=== PATIENT | female | born 1945 | race Caucasian/White ===

== ENCOUNTER 2016-12-30 21:27 | Emergency (ER) | payer MEDICARE ==
[~2016-12-30] VITALS: Ht 160 cm; Wt 81.0 kg
[~2016-12-30 21:27] MED LIST: BENT20TA PO; CIPR500T4 PO; HYDR-3533 PO; HYZA50TA2 PO; POTA10IN2 PO; SIMV20 PO; VENL-39 PO; ZOFR4TAB3 SL
[2016-12-30 21:32] VITALS: BP 180/88; PULSE 81; RESP 18; TEMP 98.3; O2SAT 99
[2016-12-30 22:19] VITALS: BP 169/71; PULSE 75; RESP 18; TEMP 98.3; O2SAT 98
[2016-12-30] MEDS ORDERED: SODIUM CHLOR 0.9% 1000 ML INJ 1,000 ML IV SCH (22:33)
[2016-12-30 22:35] VITALS: RESP 18; O2SAT 98
[2016-12-30] MEDS ORDERED: SODIUM CHLORIDE 0.9% FLUSH 10 ML FLUSH IV FLUSH PRN (22:45)
[2016-12-30] MEDS ORDERED: MORPHINE SULFATE 8 MG/ML INJ IV PUSH ONE (22:45)
[2016-12-30] MEDS ORDERED: ONDANSETRON HCL 4 MG/2 ML VIAL IVP ONE (22:45)
[2016-12-30 22:51] LABS: AUTOMATED NEUTROPHIL # 5.6 TH/MM3 (1.8-7.7); BASOPHIL % 0.4 % (0.0-2.0); EOSINOPHIL # 0.1 TH/MM3 (0-0.4); EOSINOPHIL % 1.7 % (0.0-4.0); HEMATOCRIT 35.3 % (35.0-46.0); HEMO FLAGS DIFF FINAL; LYMPHOCYTE # 1.5 TH/MM3 (1.0-4.8); MEAN CELL VOLUME 88.7 FL (80.0-100.0); MEAN CORPUSCULAR HGB CONC 33.9 % (32.0-36.0); MONO % 6.3 % (0.0-8.0); NEUT % 71.6 % (16.0-70.0); PLATELET COUNT 279 TH/MM3 (150-450); RED BLOOD COUNT 3.99 MIL/MM3 (4.00-5.30); RED CELL DISTRIBUTION WIDTH 12.4 % (11.6-17.2); WHITE BLOOD COUNT 7.7 TH/MM3 (4.0-11.0)
[2016-12-30 23:01] LABS: CHLORIDE 101 MEQ/L (98-107); SODIUM (NA) 137 MEQ/L (136-145)
[2016-12-30 23:05] LABS: ANION GAP 7 MEQ/L (5-15); BICARBONATE 29.1 MEQ/L (21.0-32.0); BLOOD UREA NITROGEN 23 MG/DL (7-18)
[2016-12-30 23:07] LABS: BLOOD, URINE TRACE (NEG); GLUCOSE,URINE NEG (NEG); KETONE, URINE NEG (NEG); NITRITE,URINE NEG (NEG); PH, URINE 5.5 (5.0-8.5)
[2016-12-30 23:08] LABS: ALT (GPT) 23 U/L (10-53); AST (GOT) 26 U/L (15-37); GLOMERULAR FILTRATION RATE 45 ML/MIN (>89)
[2016-12-30 23:09] LABS: TOTAL BILIRUBIN ADULT 0.5 MG/DL (0.2-1.0)
[2016-12-30 23:10] LABS: POTASSIUM 4.3 MEQ/L (3.5-5.1)
[2016-12-30 23:11] LABS: ALKALINE PHOSPHATASE 136 U/L (45-117)
[2016-12-30 23:13] LABS: BACTERIA, URINE RARE /hpf; COMMENT (UR) CULT NOT INDICATED; CULTURE IF INDICATED CULT NOT INDICATED; RBC, URINE 0-3 /hpf (0-3); URINE COLOR YELLOW (YELLW/STRAW)
[2016-12-30] MEDS ORDERED: IOHEXOL 350 MG/ML 10 ML VIAL (for RAD DIAG) IV ONE (23:54)
--- NOTE | 2016-12-31 00:18 | RADRPT ---
EXAM DATE/TIME: 12/30/2016 23:50 [place] COMPARISON: CT ABDOMEN & PELVIS W CONTRAST, December 31, 2015, 11:27. INDICATIONS : Right lower quadrant pain, nausea and vomiting for one week. IV CONTRAST: 96 cc Omnipaque 350 (iohexol) IV ORAL CONTRAST: No oral contrast ingested. RADIATION DOSE: 13.10 CTDIvol (mGy) MEDICAL HISTORY : Hypertension. SURGICAL HISTORY : Hysterectomy. Appendectomy.Cholecystectomy.Lt ovary ENCOUNTER: Initial ACUITY: 1 week PAIN SCALE: 8/10 LOCATION: Right lower quadrant TECHNIQUE: Volumetric scanning of the abdomen and pelvis was performed. Using automated exposure control and ad justment of the mA and/or kV according to patient size, radiation dose was kept as low as reasonably achievable to obtain optimal diagnostic quality images. DICOM format image data is available electro nically for review and comparison. FINDINGS: LOWER LUNGS: The visualized lower lungs are clear. LIVER: Homogeneous density without lesion. There is no dilation of the biliary tree. Cholecystectomy clips. SPLEEN: Normal size without lesion. PANCREAS: Within normal limits. KIDNEYS: Normal in size and shape. There is no mass, stone or hydronephrosis. ADRENAL GLANDS: Within normal limits. VASCULAR: There is no aortic aneurysm. BOWEL/MESENTERY: The stomach, small bowel, and colon demonstrate no acute abnormality. There is no free intraperitone al air or fluid. Scattered diverticulosis. ABDOMINAL WALL: Small fat-containing umbilical hernia. RETROPERITONEUM: There is no lymphadenopathy. BLADDER: No wall thickening or mass. REPRODUCTIVE: Within normal limits. Small calcification posterior to the uterus. INGUINAL: There is no lymphadenopathy or hernia. MUSCULOSKELETAL: Within normal limits for patient age. CONCLUSION: 1. Diverticulosis without diverticulitis. 2. Status post cholecystectomy. 3. Small fat-containing umbilical hernia. 4. Calcified leiomyoma. Randolph Najera MD on December 31, 2016 at 0:14 Board Certified Radiologist. This report was verified electronically.
--- NOTE | 2016-12-31 00:46 | PD ---
HPI Chief Complaint: GI Complaint Time Seen by Provider: 22:33 Travel History International Travel<30 days: No Contact w/Intl Traveler<30days: No Traveled to known affect area: No History of Present Illness HPI 71 year-old female presents to the emergency department for complaint of lower abdominal pain times one week. Patient was seen by her primary care provider and started on oral antibiotic medication for abdominal cramping and spasm and pain medication. Patient states she does not feel like she is improved. Patient states at time of diagnosis she was not having fever chills diarrhea or or blood or mucous in her stool. Patient does not recall diagnosis of diverticulosis at time of colonoscopy several years ago. Patient denies history of inflammatory bowel disease. Patient denies dietary indiscretion well water ingestion or foreign travel. Patient denies dysuria frequency or urgency. Patient has had no chest pain or shortness of breath. Patient rates her discomfort 8/10 in intensity. Patient is unable to identify exacerbating or alleviating factors. Patient does not note increased pain with activity or movement. PFSH Past Medical History Narrative Medical Hypertension dyslipidemia spinal stenosis lumbar disc disease ovarian cysts cholecystectomy hysterectomy left oophorectomy and bunionectomy; no tobacco use ; nursing notes reviewed Cardiovascular Problems: Yes (HTN) High Cholesterol: Yes Diminished Hearing: No Hypertension: Yes Medical other: Yes (SPINAL STENOSIS, BULGING DISC AT L4 AND L5) Tetanus Vaccination: > 5 Years Influenza Vaccination: Yes ?: Not Menopausal: Yes Ovarian Cysts: Yes Past Surgical History Cholecystectomy: Yes Gynecologic Surgery: Yes (L OVARY REMOVAL) Hysterectomy: Yes Other Surgery: Yes (R GREAT TOE BUNECTOMY) Social History Alcohol Use: No Tobacco Use: No Substance Use: No Allergies-Medications (Allergen,Severity, Reaction): Coded Allergies: SANDRO Inhibitors (Verified Allergy, Severe, COUGH, 12/30/16) Reported Meds & Prescriptions Reported Meds & Active Scripts Active Phenergan (Promethazine HCl) 25 Mg Tablet 25 Mg PO Q6H PRN Lortab 5 mg/325 mg (Hydrocodone/Acetaminophen 5 mg/325 mg) 1 Tab 1 Tab PO Q4H PRN Cipro (Ciprofloxacin HCl) 500 Mg Tab 500 Mg PO BID Bentyl (Dicyclomine HCl) 20 Mg Tab 20 Mg PO QID PRN Zofran ODT (Ondansetron HCl) 4 Mg Tab 4 Mg SL Q6H PRN FOR NAUSEA/VOMITING Reported Simvastatin 20 mg (Simvastatin) 20 Mg Tab 1 Tab PO EVERY OTHER DAY Potassium Chloride 10 Meq Cap 1 Cap PO DAILY Venlafaxine Hcl Er (Venlafaxine HCl) 75 Mg Dede 75 Mg PO DAILY Hyzaar 50-12.5 (Losartan Potassium-Hct 50-12.5) 50 Mg/12.5 Mg Tab 1 Tab PO DAILY Review of Systems Except as stated in HPI: all other systems reviewed are Neg General / Constitutional: No: Fever, Chills HENT: No: Congestion Cardiovascular: No: Chest Pain or Discomfort Respiratory: No: Shortness of Breath Gastrointestinal: Positive: Nausea, Vomiting, Abdominal Pain, No: Diarrhea Genitourinary: No: Decreased Urinary Output, Flank Pain Musculoskeletal: No: Myalgias, Arthralgias Skin: No Rash Neurologic: No: Weakness Psychiatric: Positive: Anxiety Hematologic/Lymphatic: No: Lymph Node Enlargement Physical Exam Narrative GENERAL: Well-developed well-nourished female in no acute distress no respiratory distress SKIN: Warm and dry. HEAD: Normocephalic. EYES: No scleral icterus. No injection or drainage. NECK: Supple, trachea midline. No JVD or lymphadenopathy. CARDIOVASCULAR: Regular rate and rhythm without murmurs, gallops, or rubs. RESPIRATORY: Breath sounds equal bilaterally. No accessory muscle use. GASTROINTESTINAL: Abdomen soft, bilateral lower quadrant tenderness to palpation without guarding or rebound, nondistended. MUSCULOSKELETAL: No cyanosis, or edema. BACK: Nontender without obvious deformity. No CVA tenderness. Data Data Last Documented VS Vital Signs Date Time Temp Pulse Resp B/P Pulse Ox O2 Delivery O2 Flow Rate FiO2 12/31/16 02:06 68 18 123/55 97 12/30/16 22:35 Room Air 12/30/16 22:19 98.3 Orders Complete Blood Count With Diff (12/30/16 22:33) Comprehensive Metabolic Panel (12/30/16 22:33) Lipase (12/30/16 22:33) Urinalysis - C+S If Indicated (12/30/16 22:33) Ct Abd/Pel W Iv Contrast(Rout) (12/30/16 22:33) Iv Access Insert/Monitor (12/30/16 22:33) Ecg Monitoring (12/30/16 22:33) Oximetry (12/30/16 22:33) Ondansetron Inj (Zofran Inj) (12/30/16 22:45) Sodium Chlor 0.9% 1000 Ml Inj (Ns 1000 M (12/30/16 22:33) Sodium Chloride 0.9% Flush (Ns Flush) (12/30/16 22:45) Morphine Inj (Morphine Inj) (12/30/16 22:45) Iohexol 350 Inj (Omnipaque 350 Inj) (12/30/16 23:54) Ketorolac Inj (Toradol Inj) (12/31/16 01:00) Ceftriaxone Inj (Rocephin Inj) (12/31/16 01:00) Labs Laboratory Tests Test 12/30/16 12/30/16 22:45 22:50 White Blood Count 7.7 TH/MM3 Red Blood Count 3.99 MIL/MM3 Hemoglobin 12.0 GM/DL Hematocrit 35.3 % Mean Corpuscular Volume 88.7 FL Mean Corpuscular Hemoglobin 30.0 PG Mean Corpuscular Hemoglobin 33.9 % Concent Red Cell Distribution Width 12.4 % Platelet Count 279 TH/MM3 Mean Platelet Volume 8.3 FL Neutrophils (%) (Auto) 71.6 % Lymphocytes (%) (Auto) 20.0 % Monocytes (%) (Auto) 6.3 % Eosinophils (%) (Auto) 1.7 % Basophils (%) (Auto) 0.4 % Neutrophils # (Auto) 5.6 TH/MM3 Lymphocytes # (Auto) 1.5 TH/MM3 Monocytes # (Auto) 0.5 TH/MM3 Eosinophils # (Auto) 0.1 TH/MM3 Basophils # (Auto) 0.0 TH/MM3 CBC Comment DIFF FINAL Differential Comment Sodium Level 137 MEQ/L Potassium Level 4.3 MEQ/L Chloride Level 101 MEQ/L Carbon Dioxide Level 29.1 MEQ/L Anion Gap 7 MEQ/L Blood Urea Nitrogen 23 MG/DL Creatinine 1.20 MG/DL Estimat Glomerular Filtration 45 ML/MIN Rate Random Glucose 93 MG/DL Calcium Level 9.5 MG/DL Total Bilirubin 0.5 MG/DL Aspartate Amino Transf 26 U/L (AST/SGOT) Alanine Aminotransferase 23 U/L (ALT/SGPT) Alkaline Phosphatase 136 U/L Total Protein 7.7 GM/DL Albumin 3.7 GM/DL Lipase 133 U/L Urine Color YELLOW Urine Turbidity CLEAR Urine pH 5.5 Urine Specific [place] 1.017 Urine Protein NEG mg/dL Urine Glucose (UA) NEG mg/dL Urine Ketones NEG mg/dL Urine Occult Blood TRACE Urine Nitrite NEG Urine Bilirubin NEG Urine Leukocyte Esterase TRACE Urine RBC 0-3 /hpf Urine WBC 3-5 /hpf Urine Squamous Epithelial 6-8 /hpf Cells Urine Bacteria RARE /hpf Microscopic Urinalysis Comment CULT NOT INDICATED MDM Medical Decision Making Medical Screen Exam Complete: Yes Emergency Medical Condition: Yes Medical Record Reviewed: Yes Interpretation(s) Last Impressions Abdomen/Pelvis CT 12/30/163 Signed Impressions: Service Date/Time: Friday, December 30, 2016 23:50 - CONCLUSION: 1. Diverticulosis without diverticulitis. 2. Status post cholecystectomy. 3. Small fat-containing umbilical hernia. 4. Calcified leiomyoma. Randolph Najera MD CBC & BMP Diagram 12/30/16 22:45 Vital Signs Date Time Temp Pulse Resp B/P Pulse Ox O2 Delivery O2 Flow Rate FiO2 12/30/16 23:19 18 12/30/16 22:35 18 98 Room Air 12/30/16 22:29 18 12/30/16 22:19 98.3 75 18 169/71 98 12/30/16 21:32 98.3 81 18 180/88 99 Differential Diagnosis Abdominal pain diverticulosis diverticulitis abscess UTI appendicitis ischemic colitis Narrative Course Well-developed well-nourished female in no acute distress no respiratory distress; IV access obtained specimens collected sent for resulting; patient administered IV fluids pain medication and anti-medic Lipase grossly normal range CT abdomen and pelvis reveals no acute abnormality diverticulosis without diverticulitis leiomyomata and small fat-containing umbilical hernia no report of acute inflammatory process or bowel obstruction Patient feels clinically improved is aware of imaging results and lab results and is stable for outpatient management. Patient's questions were answered to her satisfaction. Patient is encouraged to complete her course of oral antibiotic as prescribed. Patient is encouraged to follow-up with her primary care provider. Patient encouraged her to the emergency department for any concerns and specifically develops any fever 100.4F or greater. Diagnosis Primary Impression: Abdominal pain Qualified Code: R10.30 - Lower abdominal pain Additional Impressions: UTI (urinary tract infection) Qualified Code: N39.0 - Urinary tract infection without hematuria, site unspecified Diverticulosis Qualified Code: K57.90 - Diverticulosis of intestine without bleeding, unspecified intestinal tract location Referrals: Primary Care Physician call for appointment Patient Instructions: General Instructions Additional Instructions: Recommend clear liquid diet for next 12-24 hours advance to bland/Doreen diet and regular diet increasing fiber in dietary intake Complete course of antibiotic as prescribed Return to the emergency department for any concerns or change condition Take acetaminophen as needed for fever 100.4F or greater Follow-up with your primary care provider Med/Other Pt SpecificInfo: Prescription(s) given Scripts Promethazine (Phenergan)25 Mg [id number] Mg PO Q6H PRN (NAUSEA OR VOMITING) #10 TAB Ref 0 Prov:Bria Parker MD 12/31/16 Disposition: 01 DISCHARGE HOME Condition: Stable Bria Parker MD Dec 31, 2016 00:46
[2016-12-31] MEDS ORDERED: PROM25TA10 PO (00:53)
[2016-12-31] MEDS ORDERED: cefTRIAXone INJ 1,000 MG in SODIUM CHLORIDE 0.9% INJ 100 ML IV ONE (01:00)
[2016-12-31] MEDS ORDERED: KETOROLAC TROMETHAMINE 30 MG/ML (IVP) VIAL IV PUSH ONE (01:00)
[2016-12-31 01:42] VITALS: RESP 18
[2016-12-31 02:06] VITALS: BP 123/55
[2017-01-01] MEDS ORDERED: POTA10CA PO ×2 (21:53)
[2017-01-01] MEDS ORDERED: VENL75TA2 PO ×2 (21:53)
[2017-01-01] MEDS ORDERED: LIPI40TA PO ×2 (21:53)
[2017-01-01] MEDS ORDERED: HYZA50TA2 PO ×2 (21:53)
[2017-01-01] MEDS ORDERED: MOBI15TA PO ×2 (21:53)
[2017-01-01] MEDS ORDERED: HYDR-3516 PO ×2 (21:53)
== END 2016-12-31 02:09 | disposition home or self-care (01) ==
LOC: PHED 21:27
DX: N39.0 Urinary tract infection, site not specified (principal); K57.30 Diverticulosis of large intestine without perforation or abscess without bleeding; K42.9 Umbilical hernia without obstruction or gangrene
CPT/HCPCS: 74177; 80053; 81001; 83690; 85025; 96361; 96365; 96375; 99285; J0696; J1885; J2270; J2405; J7030; Q9967

== ENCOUNTER 2017-01-01 20:49 | Observation (INO) | payer MEDICARE ==
[~2017-01-01] VITALS: Ht 160 cm; Wt 81.2 kg
[~2017-01-01 20:49] MED LIST changes: +PROM25TA10 PO
[2017-01-01 20:55] VITALS: BP 172/78; PULSE 102; RESP 20; TEMP 99.4; O2SAT 98
[2017-01-01 21:28] VITALS: BP 137/85; PULSE 93; RESP 17; TEMP 98.3; O2SAT 97
[2017-01-01] MEDS ORDERED: HYDR-3516 PO ×2 (21:53)
[2017-01-01] MEDS ORDERED: VENL75TA2 PO ×2 (21:53)
[2017-01-01] MEDS ORDERED: POTA10CA PO ×2 (21:53)
[2017-01-01] MEDS ORDERED: MOBI15TA PO ×2 (21:53)
[2017-01-01] MEDS ORDERED: LIPI40TA PO ×2 (21:53)
[2017-01-01] MEDS ORDERED: HYZA50TA2 PO ×2 (21:53)
--- NOTE | 2017-01-01 21:59 | PD ---
HPI Chief Complaint: GI Complaint Time Seen by Provider: 21:41 Travel History International Travel<30 days: No Contact w/Intl Traveler<30days: No Traveled to known affect area: No History of Present Illness HPI This 71-year-old female is complaining of abdominal pain and vomiting. She went to her doctor last Monday and was having some abdominal pain. He was concerned that she might have a urinary tract infection and started her on antibiotics. Symptoms did not improve and she came to the hospital here on Monday. At that time she had extensive workup. Her hemoglobin was 12 with a white count of 7.7. BNP is 23 with creatinine 1.2. Urinalysis showed 3-[address] scan of the abdomen and pelvis showed diverticulosis without diverticulitis. She was given prescription for Phenergan to use at home. She has been using it but she has not been able to hold anything down. She says if he drinks water she vomits is been unable to eat. He is continuing to have abdominal pain. The pain she is having is crampy pain which is intermittent. She has a history of cholecystectomy PFSH Past Medical History Cardiovascular Problems: Yes (HTN) High Cholesterol: Yes Diminished Hearing: No Hypertension: Yes Menopausal: Yes Ovarian Cysts: Yes Past Surgical History Cholecystectomy: Yes Gynecologic Surgery: Yes (L OVARY REMOVAL) Hysterectomy: Yes Other Surgery: Yes (R GREAT TOE BUNECTOMY) Social History Alcohol Use: No Tobacco Use: No Substance Use: No Allergies-Medications (Allergen,Severity, Reaction): Coded Allergies: SANDRO Inhibitors (Verified Allergy, Severe, COUGH, 01/01/17) Reported Meds & Prescriptions Reported Meds & Active Scripts Active Phenergan (Promethazine HCl) 25 Mg Tablet 25 Mg PO Q6H PRN Reported Mobic (Meloxicam) 15 Mg Tab 15 Mg PO HS Venlafaxine ER 24 HR (Venlafaxine HCl) 75 Mg Tab 75 Mg PO DAILY Lipitor (Atorvastatin Calcium) 40 Mg Tab 40 Mg PO HS Potassium Chloride ER (Potassium Chloride) 10 Meq Cap 10 Meq PO DAILY Hyzaar (Losartan-Hydrochlorothiazide) 50-12.5 Mg Tab 1 Tab PO DAILY Hydrocodone-Acetaminophen 5-325 mg Tab 1 Tab PO Q4H PRN Review of Systems General / Constitutional: No: Fever, Chills Eyes: No: Diploplia HENT: No: Headaches, Vertigo Cardiovascular: No: Chest Pain or Discomfort, Palpitations Respiratory: No: Cough Gastrointestinal: Positive: Nausea, Vomiting, Abdominal Pain, Loss of Appetite Genitourinary: No: Urgency, Frequency Musculoskeletal: No: Myalgias, Arthralgias Skin: No Rash, No Itching Neurologic: No: Weakness, Dizziness Endocrine: No: Heat Intolerance Hematologic/Lymphatic: No: Easy Bruising Physical Exam Narrative GENERAL: Well-developed female. SKIN: Focused skin assessment warm/dry. HEAD: Atraumatic. Normocephalic. EYES: Pupils equal and round. No scleral icterus. No injection or drainage. ENT: No nasal bleeding or discharge. Mucous membranes dry NECK: Trachea midline. No JVD. CARDIOVASCULAR: Regular rate and rhythm. No murmur appreciated. RESPIRATORY: No accessory muscle use. Clear to auscultation. Breath sounds equal bilaterally. GASTROINTESTINAL: Abdomen soft, there is some mild diffuse tenderness without guarding or rigidity. There is no distention. Bowel sounds are present MUSCULOSKELETAL: No obvious deformities. No clubbing. No cyanosis. No edema. NEUROLOGICAL: Awake and alert. No obvious cranial nerve deficits. Motor grossly within normal limits. Normal speech. PSYCHIATRIC: Appropriate mood and affect; insight and judgment normal. Data Data Last Documented VS Vital Signs Date Time Temp Pulse Resp B/P Pulse Ox O2 Delivery O2 Flow Rate FiO2 01/01/17 23:28 76 18 137/56 98 Room Air 01/01/17 21:28 98.3 Orders Complete Blood Count With Diff (01/01/17 21:54) Comprehensive Metabolic Panel (01/01/17 21:54) Urinalysis - C+S If Indicated (01/01/17 21:54) Sodium Chlor 0.9% 1000 Ml Inj (Ns 1000 M (01/01/17 22:00) Ondansetron Inj (Zofran Inj) (01/01/17 22:00) Hydromorphone Pf Inj (Dilaudid Pf Inj) (01/01/17 22:00) Dicyclomine Inj (Bentyl Inj) (01/01/17 22:00) Labs Laboratory Tests Test 01/01/17 22:30 White Blood Count 8.3 TH/MM3 Red Blood Count 3.90 MIL/MM3 Hemoglobin 11.7 GM/DL Hematocrit 34.3 % Mean Corpuscular Volume 87.8 FL Mean Corpuscular Hemoglobin 30.0 PG Mean Corpuscular Hemoglobin 34.2 % Concent Red Cell Distribution Width 12.4 % Platelet Count 262 TH/MM3 Mean Platelet Volume 8.7 FL Neutrophils (%) (Auto) 79.3 % Lymphocytes (%) (Auto) 14.6 % Monocytes (%) (Auto) 5.2 % Eosinophils (%) (Auto) 0.6 % Basophils (%) (Auto) 0.3 % Neutrophils # (Auto) 6.7 TH/MM3 Lymphocytes # (Auto) 1.2 TH/MM3 Monocytes # (Auto) 0.4 TH/MM3 Eosinophils # (Auto) 0.0 TH/MM3 Basophils # (Auto) 0.0 TH/MM3 CBC Comment DIFF FINAL Differential Comment Urine Collection Type VOIDED Urine Color YELLOW Urine Turbidity CLEAR Urine pH 5.5 Urine Specific [place] 1.012 Urine Protein NEG mg/dL Urine Glucose (UA) NEG mg/dL Urine Ketones 15 mg/dL Urine Occult Blood TRACE Urine Nitrite NEG Urine Bilirubin NEG Urine Leukocyte Esterase NEG Urine WBC 0-2 /hpf Urine Squamous Epithelial 0-3 /hpf Cells Urine Mucus RARE /lpf Microscopic Urinalysis Comment CULT NOT INDICATED Sodium Level 137 MEQ/L Potassium Level 3.9 MEQ/L Chloride Level 100 MEQ/L Carbon Dioxide Level 27.7 MEQ/L Anion Gap 9 MEQ/L Blood Urea Nitrogen 18 MG/DL Creatinine 1.10 MG/DL Estimat Glomerular Filtration 49 ML/MIN Rate Random Glucose 98 MG/DL Calcium Level 9.1 MG/DL Total Bilirubin 0.5 MG/DL Aspartate Amino Transf 27 U/L (AST/SGOT) Alanine Aminotransferase 23 U/L (ALT/SGPT) Alkaline Phosphatase 129 U/L Total Protein 7.4 GM/DL Albumin 3.5 GM/DL [facility] Medical Decision Making Medical Screen Exam Complete: Yes Emergency Medical Condition: Yes Medical Record Reviewed: Yes Differential Diagnosis Differential includes enteritis, dehydration, intractable vomiting Narrative Course Patient has been started on IV fluids and given Bentyl, Dilaudid and Zofran. Her hemoglobin is 11.7 with a white count of 8.3. Her BUNs 18 with creatinine of 1.1. Urinalysis shows trace ketones. Patient has had some improvement in symptoms with these medications but still has some nausea and discomfort. She is very uncomfortable about the thought of going home. Her symptoms at this point have been going on for 7 days and have been refractory to Phenergan and Zofran Diagnosis Primary Impression: Intractable vomiting Qualified Code: R11.2 - Intractable vomiting with nausea, unspecified vomiting type Admitting Information Admitting Physician Requests: Observation Denis Stewart MD Jan 01, 2017 21:58 Denis Stewart MD Jan 01, 2017 21:58
[2017-01-01] MEDS ORDERED: ONDANSETRON HCL 4 MG/2 ML VIAL IV PUSH ONE (22:00)
[2017-01-01] MEDS ORDERED: DICYCLOMINE HCL 20 MG/2 ML VIAL IM ONE (22:00)
[2017-01-01] MEDS ORDERED: SODIUM CHLOR 0.9% 1000 ML INJ 1,000 ML IV ONE (22:00)
[2017-01-01] MEDS ORDERED: HYDROmorphone HCL PF 1 MG/ML VIAL IV PUSH ONE (22:00)
[2017-01-01 22:26] VITALS: BP 180/83; PULSE 74; RESP 18; O2SAT 95
[2017-01-01 22:35] LABS: AUTOMATED NEUTROPHIL # 6.7 TH/MM3 (1.8-7.7); BASOPHIL % 0.3 % (0.0-2.0); EOSINOPHIL % 0.6 % (0.0-4.0); HEMATOCRIT 34.3 % (35.0-46.0); HEMO FLAGS DIFF FINAL; LYMPH % 14.6 % (9.0-44.0); LYMPHOCYTE # 1.2 TH/MM3 (1.0-4.8); MEAN CELL VOLUME 87.8 FL (80.0-100.0); MEAN CORPUSCULAR HGB CONC 34.2 % (32.0-36.0); MONO % 5.2 % (0.0-8.0); NEUT % 79.3 % (16.0-70.0); PLATELET COUNT 262 TH/MM3 (150-450); RED CELL DISTRIBUTION WIDTH 12.4 % (11.6-17.2); WHITE BLOOD COUNT 8.3 TH/MM3 (4.0-11.0)
[2017-01-01 22:36] LABS: BLOOD, URINE TRACE (NEG); GLUCOSE,URINE NEG (NEG); KETONE, URINE 15 mg/dL (NEG); NITRITE,URINE NEG (NEG); PH, URINE 5.5 (5.0-8.5)
[2017-01-01 22:59] LABS: METHOD OF COLLECTION VOIDED; MUCUS URINE RARE /lpf (OCC); URINE COLOR YELLOW (YELLW/STRAW)
[2017-01-01 23:00] LABS: COMMENT (UR) CULT NOT INDICATED; CULTURE IF INDICATED CULT NOT INDICATED; SQUAMOUS EPITHELIAL CELL URINE 0-3 /hpf (0-5); WBC, URINE 0-2 /hpf (0-5)
[2017-01-01 23:01] LABS: CHLORIDE 100 MEQ/L (98-107); POTASSIUM 3.9 MEQ/L (3.5-5.1); SODIUM (NA) 137 MEQ/L (136-145)
[2017-01-01 23:05] LABS: ANION GAP 9 MEQ/L (5-15); BICARBONATE 27.7 MEQ/L (21.0-32.0); BLOOD UREA NITROGEN 18 MG/DL (7-18)
[2017-01-01 23:08] LABS: ALT (GPT) 23 U/L (10-53); AST (GOT) 27 U/L (15-37); GLOMERULAR FILTRATION RATE 49 ML/MIN (>89)
[2017-01-01 23:10] LABS: TOTAL BILIRUBIN ADULT 0.5 MG/DL (0.2-1.0)
[2017-01-01 23:11] LABS: ALKALINE PHOSPHATASE 129 U/L (45-117)
[2017-01-01 23:28] VITALS: BP 137/56; PULSE 76; RESP 18; O2SAT 98
[2017-01-01] MEDS ORDERED: LACTULOSE SYRUP 20 GM/30 ML CUP PO PRN (23:45)
[2017-01-01] MEDS ORDERED: MAGNESIUM HYDROXIDE SUSP 30 ML CUP PO PRN (23:45)
[2017-01-01] MEDS ORDERED: BISACODYL 10 MG SUPP RECTAL PRN (23:45)
[2017-01-01] MEDS ORDERED: SODIUM CHLORIDE 0.9% FLUSH 10 ML FLUSH IV FLUSH PRN (23:45)
[2017-01-01] MEDS ORDERED: ACETAMINOPHEN/HYDROcodone 325 MG/5 MG TAB PO PRN (23:45)
[2017-01-01] MEDS ORDERED: ACETAMINOPHEN 325 MG TAB PO PRN (23:45)
[2017-01-01] MEDS ORDERED: SENNOSIDES 8.6 MG TAB PO PRN (23:45)
[2017-01-02] MEDS: MORPHINE SULFATE 4 MG/ML INJ IV PRN ×3 (00:07→06:16)
[2017-01-02] MEDS: ONDANSETRON HCL 4 MG/2 ML VIAL IVP PRN ×2 (00:07→06:16)
[2017-01-02 00:15] VITALS: BP 120/63; PULSE 76; RESP 18; TEMP 98.3; O2SAT 96
[2017-01-02] MEDS: SODIUM CHLOR 0.9% 1000 ML INJ 1,000 ML IV SCH ×2 (01:07)
[2017-01-02 04:23] VITALS: BP 115/63; PULSE 69; RESP 20; TEMP 96.5; O2SAT 95
[2017-01-02 06:52] LABS: CHLORIDE 105 MEQ/L (98-107); POTASSIUM 3.5 MEQ/L (3.5-5.1); SODIUM (NA) 144 MEQ/L (136-145)
[2017-01-02 06:53] LABS: AUTOMATED NEUTROPHIL # 5.9 TH/MM3 (1.8-7.7); BASOPHIL % 0.5 % (0.0-2.0); EOSINOPHIL # 0.1 TH/MM3 (0-0.4); EOSINOPHIL % 1.1 % (0.0-4.0); LYMPH % 27.2 % (9.0-44.0); LYMPHOCYTE # 2.5 TH/MM3 (1.0-4.8); MEAN CELL VOLUME 91.1 FL (80.0-100.0); MEAN CORPUSCULAR HEMOGLOBIN 30.4 PG (27.0-34.0); MEAN CORPUSCULAR HGB CONC 33.3 % (32.0-36.0); MONO % 6.3 % (0.0-8.0); NEUT % 64.9 % (16.0-70.0); PLATELET COUNT 269 TH/MM3 (150-450); RED BLOOD COUNT 3.62 MIL/MM3 (4.00-5.30); RED CELL DISTRIBUTION WIDTH 12.8 % (11.6-17.2); WHITE BLOOD COUNT 9.1 TH/MM3 (4.0-11.0)
[2017-01-02 07:00] LABS: ANION GAP 11 MEQ/L (5-15); BICARBONATE 28.2 MEQ/L (21.0-32.0); BLOOD UREA NITROGEN 15 MG/DL (7-18)
[2017-01-02 07:01] LABS: ALT (GPT) 24 U/L (10-53); AST (GOT) 22 U/L (15-37)
[2017-01-02 07:03] LABS: GLOMERULAR FILTRATION RATE 49 ML/MIN (>89); TOTAL BILIRUBIN ADULT 0.4 MG/DL (0.2-1.0)
[2017-01-02 07:04] LABS: ALKALINE PHOSPHATASE 125 U/L (45-117)
[2017-01-02 07:07] LABS: HEMO FLAGS DIFF FINAL
[2017-01-02 08:00] VITALS: BP 106/64; PULSE 64; RESP 18; TEMP 97.4; O2SAT 94
[2017-01-02] MEDS ORDERED: DOCUSATE SODIUM 50 MG/SENNA 8.6 MG TAB PO SCH (09:00)
[2017-01-02] MEDS ORDERED: SODIUM CHLORIDE 0.9% FLUSH 10 ML FLUSH IV FLUSH SCH (09:00)
--- NOTE | 2017-01-02 10:53 | HHI.HP ---
[facility] Galina Hill MD Admission Diagnosis INTRACTABLE VOMITING Diagnoses: (1) Intractable vomiting (2) Diverticulosis (3) Abdominal pain Chief Complaint: Intractable nausea and vomiting along with abdominal pain Travel History International Travel<30 Days: No Contact w/Intl Traveler <30 Da: No Traveled to Known Affected Are: No History of Present Illness 71 year-old female for history of hypertension, previous history of expiratory laparotomy, cholecystectomy initially presented to the ED on for right lower quadrant abdominal pain 1 week duration and diagnosed with diverticulosis without diverticulitis returned to the emergency department yesterday with continued episodes of intractable, nausea and vomiting along with abdominal pain rated over 10 in intensity. Patient completed treatment for UTI, prescribed by her PCP. Since admission, patient reported improvement of symptoms of intractable nausea and vomiting along with abdominal pain as patient was able to tolerate by mouth this a.m. Vitals remained stable. Patient denies any GI bleed or symptoms of dysuria. Review of Systems Except as stated in HPI: all other systems reviewed are Neg Past Family Social History Past Medical History Hypertension dyslipidemia spinal stenosis lumbar disc disease ovarian cysts Past Surgical History Cholecystectomy L OVARY REMOVAL Hysterectomy R GREAT TOE BUNIONECTOMY Reported Medications Phenergan (Promethazine HCl) 25 Mg Tablet 25 Mg PO Q6H PRN Reported Mobic (Meloxicam) 15 Mg Tab 15 Mg PO HS Venlafaxine ER 24 HR (Venlafaxine HCl) 75 Mg Tab 75 Mg PO DAILY Lipitor (Atorvastatin Calcium) 40 Mg Tab 40 Mg PO HS Potassium Chloride ER (Potassium Chloride) 10 Meq Cap 10 Meq PO DAILY Hyzaar (Losartan-Hydrochlorothiazide) 50-12.5 Mg Tab 1 Tab PO DAILY Hydrocodone-Acetaminophen 5-325 mg Tab 1 Tab PO Q4H PRN Allergies: Coded Allergies: SANDRO Inhibitors (Verified Allergy, Severe, COUGH, 01/01/17) Family History Mother of a massive heart attack at age 56 Father of complication of chronic kidney disease Social History Alcohol Use: No Tobacco Use: No Substance Use: No Physical Exam Vital Signs Vital Signs Date Time Temp Pulse Resp B/P Pulse Ox O2 Delivery O2 Flow Rate FiO2 01/02/17 08:00 97.4 64 18 106/64 94 01/02/17 04:23 96.5 69 20 115/63 95 01/02/17 00:15 98.3 76 18 120/63 96 Room Air 01/02/17 00:13 18 01/01/17 23:28 76 18 137/56 98 Room Air 01/01/17 22:44 17 01/01/17 22:26 74 18 180/83 95 Room Air 01/01/17 21:28 98.3 93 17 137/85 97 Nasal Cannula 01/01/17 20:55 99.4 102 20 172/78 98 Physical Exam GENERAL: This is a well-nourished, well-developed patient, in no apparent distress. SKIN: No rashes, ecchymoses or lesions. Cool and dry. HEAD: Atraumatic. Normocephalic. No temporal or scalp tenderness. EYES: Pupils equal round and reactive. Extraocular motions intact. No scleral icterus. No injection or drainage. ENT: Nose without bleeding, purulent drainage or septal hematoma. Throat without erythema, tonsillar hypertrophy or exudate. Uvula midline. Airway patent. NECK: Trachea midline. No JVD or lymphadenopathy. Supple, nontender, no meningeal signs. CARDIOVASCULAR: Regular rate and rhythm without murmurs, gallops, or rubs. RESPIRATORY: Clear to auscultation. Breath sounds equal bilaterally. No wheezes , rales, or rhonchi. GASTROINTESTINAL: Abdomen soft, non-tender, nondistended. No hepato-splenomegaly , or palpable masses. No guarding. MUSCULOSKELETAL: Extremities without clubbing, cyanosis, or edema. No joint tenderness, effusion, or edema noted. No calf tenderness. Negative Homans sign bilaterally. NEUROLOGICAL: Awake and alert. Cranial nerves II through XII intact. Motor and sensory grossly within normal limits. Five out of 5 muscle strength in all muscle groups. Normal speech. Laboratory Laboratory Tests Test 01/01/17 01/02/17 22:30 06:05 White Blood Count 8.3 9.1 Red Blood Count 3.90 3.62 Hemoglobin 11.7 11.0 Hematocrit 34.3 33.0 Mean Corpuscular Volume 87.8 91.1 Mean Corpuscular Hemoglobin 30.0 30.4 Mean Corpuscular Hemoglobin 34.2 33.3 Concent Red Cell Distribution Width 12.4 12.8 Platelet Count 262 269 Mean Platelet Volume 8.7 8.8 Neutrophils (%) (Auto) 79.3 64.9 Lymphocytes (%) (Auto) 14.6 27.2 Monocytes (%) (Auto) 5.2 6.3 Eosinophils (%) (Auto) 0.6 1.1 Basophils (%) (Auto) 0.3 0.5 Neutrophils # (Auto) 6.7 5.9 Lymphocytes # (Auto) 1.2 2.5 Monocytes # (Auto) 0.4 0.6 Eosinophils # (Auto) 0.0 0.1 Basophils # (Auto) 0.0 0.0 CBC Comment DIFF FINAL DIFF FINAL Differential Comment Urine Collection Type VOIDED Urine Color YELLOW Urine Turbidity CLEAR Urine pH 5.5 Urine Specific [place] 1.012 Urine Protein NEG Urine Glucose (UA) NEG Urine Ketones 15 Urine Occult Blood TRACE Urine Nitrite NEG Urine Bilirubin NEG Urine Leukocyte Esterase NEG Urine WBC 0-2 Urine Squamous Epithelial 0-3 Cells Urine Mucus RARE Microscopic Urinalysis Comment CULT NOT INDICATED Sodium Level 137 144 Potassium Level 3.9 3.5 Chloride Level 100 105 Carbon Dioxide Level 27.7 28.2 Anion Gap 9 11 Blood Urea Nitrogen 18 15 Creatinine 1.10 1.10 Estimat Glomerular Filtration 49 49 Rate Random Glucose 98 95 Calcium Level 9.1 8.7 Total Bilirubin 0.5 0.4 Aspartate Amino Transf 27 22 (AST/SGOT) Alanine Aminotransferase 23 24 (ALT/SGPT) Alkaline Phosphatase 129 125 Total Protein 7.4 7.1 Albumin 3.5 3.4 Result Diagram: 01/02/1760401/02/17604 Assessment and Plan Problem List: (1) Diverticulosis ICD Code: K57.90 Status: Acute (2) Intractable vomiting ICD Code: R11.10 Status: Acute (3) Abdominal pain ICD Code: R10.9 Status: Acute Assessment and Plan 71 year-old female with Diverticulosis without diverticulitis Intractable nausea and vomiting Abdominal pain CT abdomen/pelvic on 12/30/16 with finding of diverticulosis without diverticulitis Now patient with improved symptoms of nausea, vomiting abdominal pain Continue current conservative management, antiemetic, IV fluid hydration Trial of Bentyl 20 mg by mouth 4 times a day Patient advised to increase fiber in her diet Hypertension Currently normotensive Hyperlipidemia, history of arthritis, and other chronic medical conditions Resume outpatient medications DVT prophylaxis: Bilateral SCDs As patient's condition tremendously improved since admission, she'll be discharged home with follow PCP. Recommended to continue full liquid and advance diet as tolerated Discharge patient to home Condition on discharge: Improved Regular Diet as tolerated Ad Stephania activity Rx written:Bentyl 20mg tab QID; Zofran Follow-up with primary care physician in 1 week Code Status Full code Discussed Condition With Patient Problem Qualifiers (1) Intractable vomiting: Qualified Code: R11.2 - Intractable vomiting with nausea, unspecified vomiting type Randolph Fischer MD Jan 02, 2017 10:53
[2017-01-02] MEDS ORDERED: ZOFR4TAB3 SL (11:09)
[2017-01-02] MEDS ORDERED: DICY20TA10 PO (11:09)
[2017-01-02] MEDS ORDERED: DICYCLOMINE HCL 20 MG TAB PO SCH (13:00)
[2017-01-02] MEDS ORDERED: MELOXICAM 15 MG TAB PO SCH (21:00)
[2017-01-02] MEDS ORDERED: ATORVASTATIN 40 MG TAB PO SCH (21:00)
[2017-01-03] MEDS ORDERED: VENLAFAXINE HCL XR 75 MG CAP PO SCH (09:00)
[2017-01-03] MEDS ORDERED: LOSARTAN 50 MG TAB PO SCH (09:00)
[2017-01-03] MEDS ORDERED: HYDROCHLOROTHIAZIDE 12.5 MG CAP PO SCH (09:00)
[2017-01-03] MEDS ORDERED: POTASSIUM CHLORIDE 10 MEQ CAP PO SCH (09:00)
== END 2017-01-02 11:33 | disposition home or self-care (01) ==
LOC: PHED 20:49 → PHEDA 23:47 → PH3A 01-02 00:33
PROVIDERS: ADMIT Hospitalist; ATTEND Hospitalist
DX: R11.2 Nausea with vomiting, unspecified (principal); K57.90 Diverticulosis of intestine, part unspecified, without perforation or abscess without bleeding; R10.9 Unspecified abdominal pain; I10 Essential (primary) hypertension; E78.00 Pure hypercholesterolemia, unspecified; N39.0 Urinary tract infection, site not specified; Z90.49 Acquired absence of other specified parts of digestive tract
CPT/HCPCS: 80053; 81001; 85025; 96361; 96372; 96374; 96375; 96376; 99285; G0378; J0500; J1170; J2270; J2405; J7030

== ENCOUNTER 2017-01-09 21:35 | Inpatient (IN) | payer MEDICARE ==
[~2017-01-09] VITALS: Ht 160 cm; Wt 84.0 kg
[~2017-01-09 21:35] MED LIST changes: -BENT20TA PO; -CIPR500T4 PO; +DICY20TA10 PO; +HYDR-3516 PO; -HYDR-3533 PO; +LIPI40TA PO; +MOBI15TA PO; +POTA10CA PO; -POTA10IN2 PO; -PROM25TA10 PO; -SIMV20 PO; -VENL-39 PO; +VENL75TA2 PO
[2017-01-09 21:45] VITALS: BP 124/59; PULSE 80; RESP 18; O2SAT 95
[2017-01-09 21:46] VITALS: TEMP 97.7
[2017-01-09] MEDS ORDERED: SODIUM CHLOR 0.9% 1000 ML INJ 1,000 ML IV SCH (21:47)
[2017-01-09] MEDS ORDERED: CITR500T PO (21:50)
[2017-01-09] MEDS ORDERED: NEXI20CA PO (21:51)
--- NOTE | 2017-01-09 21:52 | PD ---
HPI Chief Complaint: GI Complaint Time Seen by Provider: 21:46 Travel History International Travel<30 days: No Contact w/Intl Traveler<30days: No Traveled to known affect area: No History of Present Illness HPI The patient is a 71-year-old female who presents to the emergency department via EMS for dizziness, lightheadedness, nausea, vomiting, burning epigastric abdominal pain. The patient has similar symptoms 1 week ago was admitted to the hospital where she underwent laboratory evaluation and a CT of the abdomen and pelvis. The patient was noted to have diverticulosis without any evidence of diverticulitis and was subsequent discharged home. The patient followed up with her primary physician, Dr. Hill, who took the patient off of her ARB and placed her on Nexium. The patient states that approximate 4 PM earlier today she developed some epigastric burning pain associated with nausea and vomiting after eaten chicken Parmesan without Phillip sauce. Patient also complains of dark colored stools which appear black with a small amount of blood. The patient denies any known history of peptic ulcer disease and denies taking any anticoagulants or blood thinners. She denies any previous history of endoscopy. PFSH Past Medical History Arthritis: Yes Autoimmune Disease: No Anxiety: No Depression: No Cancer: No Cardiovascular Problems: Yes (HTN) High Cholesterol: Yes Diminished Hearing: No Diverticulitis: Yes (diverticulosis) Endocrine: No GERD: No Genitourinary: No Hypertension: Yes Immune Disorder: No Musculoskeletal: Yes Neurologic: No Psychiatric: No Reproductive: No Respiratory: No Menopausal: Yes Ovarian Cysts: Yes Past Surgical History Body Medical Devices: Pin in right second toe Cholecystectomy: Yes Eye Surgery: Yes (cataracts) Gynecologic Surgery: Yes (L OVARY REMOVAL) Hysterectomy: Yes Other Surgery: Yes (R GREAT TOE BUNECTOMY) Social History Alcohol Use: No Tobacco Use: No Substance Use: No Allergies-Medications (Allergen,Severity, Reaction): Coded Allergies: benazepril (Unverified Allergy, Severe, COUGH, 01/09/17) captopril (Unverified Allergy, Severe, COUGH, 01/09/17) enalaprilat (Unverified Allergy, Severe, COUGH, 01/09/17) fosinopril (Unverified Allergy, Severe, COUGH, 01/09/17) lisinopril (Unverified Allergy, Severe, COUGH, 01/09/17) quinapril (Unverified Allergy, Severe, COUGH, 01/09/17) Reported Meds & Prescriptions Reported Meds & Active Scripts Active Zofran Odt (Ondansetron Odt) 4 Mg Tab 4 Mg SL Q6HR PRN Reported Nexium (Esomeprazole DR) 20 Mg Capdr 20 Mg PO DAILY Citrucel (Methylcellulose) 500 Mg Tab 2 Tab PO DAILY Venlafaxine ER 24 HR (Venlafaxine HCl) 75 Mg Tab 75 Mg PO DAILY Lipitor (Atorvastatin Calcium) 40 Mg Tab 40 Mg PO HS Hyzaar (Losartan-Hydrochlorothiazide) 50-12.5 Mg Tab 1 Tab PO DAILY Review of Systems Except as stated in HPI: all other systems reviewed are Neg HENT: Positive: Lightheadedness Cardiovascular: No: Chest Pain or Discomfort Respiratory: No: Shortness of Breath Gastrointestinal: Positive: Nausea, Vomiting, Abdominal Pain, Changes in Bowel Habits Neurologic: Positive: Dizziness Physical Exam Narrative GENERAL: Awake, alert, pleasant 71-year-old female who appears her stated age and is in no acute respiratory distress. SKIN: Focused skin assessment warm/dry. Mild pallor noted. HEAD: Atraumatic. Normocephalic. EYES: Pupils equal and round. No scleral icterus. No injection or drainage. ENT: No nasal bleeding or discharge. Dry mucous membranes. NECK: Trachea midline. No JVD. CARDIOVASCULAR: Regular rate and rhythm. No murmur appreciated. Heart rate in the 80s. RESPIRATORY: No accessory muscle use. Clear to auscultation. Breath sounds equal bilaterally. GASTROINTESTINAL: Abdomen soft, minimal epigastric tenderness, no rebound tenderness, guarding, or rigidity. Rectal: No gross blood, stool was noted to be black. The exam was performed in the presence of a female nurse. Grossly guaiac positive. MUSCULOSKELETAL: No obvious deformities. No clubbing. No cyanosis. No edema. NEUROLOGICAL: Awake and alert. No obvious cranial nerve deficits. Motor grossly within normal limits. Normal speech. PSYCHIATRIC: Appropriate mood and affect; insight and judgment normal. Data Data Last Documented VS Vital Signs Date Time Temp Pulse Resp B/P (MAP) Pulse Ox O2 Delivery O2 Flow Rate FiO2 01/09/17 23:08 81 16 110/56 (74) 98 Room Air 01/09/17 21:46 97.7 Orders Orders Complete Blood Count With Diff (01/09/17 21:47) Comprehensive Metabolic Panel (01/09/17 21:47) Lipase (01/09/17 21:47) Prothrombin Time / Inr (Pt) (01/09/17:47) Act Partial Throm Time (Ptt) (01/09/17 21:47) Type And Screen (01/09/17:47) Ecg Monitoring (01/09/17:47) Iv Access Insert/Monitor (01/09/17:47) Oximetry (01/09/17:47) Ondansetron Inj (Zofran Inj) (01/09/17 22:00) Pantoprazole Inj (Protonix Inj) (01/09/17 22:00) Sodium Chlor 0.9% 1000 Ml Inj (Ns 1000 M (01/09/17 21:47) Sodium Chloride 0.9% Flush (Ns Flush) (01/09/17 22:00) Orthostatic Vital Signs (01/09/17:47) Sodium Chloride 0.9... W/Pantoprazole In (01/10/17 00:00) Red Blood Cells (Rbc) (01/09/17 23:00) Blood Product Administration .UPON TRANSFUSION (01/09/17 23:00) Sodium Chlor 0.9% 250 Ml Inj (Ns 250 Ml (01/09/17 23:00) Diphenhydramine (Benadryl) (01/09/17 23:00) Acetaminophen (Tylenol) (01/09/17 23:00) Labs Laboratory Tests Test 01/09/17 22:00 White Blood Count 8.9 TH/MM3 Red Blood Count 1.75 MIL/MM3 Hemoglobin 5.4 GM/DL Hematocrit 16.1 % Mean Corpuscular Volume 92.2 FL Mean Corpuscular Hemoglobin 30.6 PG Mean Corpuscular Hemoglobin Concent 33.2 % Red Cell Distribution Width 13.4 % Platelet Count 280 TH/MM3 Mean Platelet Volume 8.6 FL Neutrophils (%) (Auto) 76.6 % Lymphocytes (%) (Auto) 18.3 % Monocytes (%) (Auto) 4.0 % Eosinophils (%) (Auto) 0.7 % Basophils (%) (Auto) 0.4 % Neutrophils # (Auto) 6.8 TH/MM3 Lymphocytes # (Auto) 1.6 TH/MM3 Monocytes # (Auto) 0.4 TH/MM3 Eosinophils # (Auto) 0.1 TH/MM3 Basophils # (Auto) 0.0 TH/MM3 CBC Comment DIFF FINAL Differential Comment Prothrombin Time 10.7 SEC Prothromb Time International Ratio 1.0 RATIO Activated Partial Thromboplast Time 22.2 SEC Blood Urea Nitrogen 26 MG/DL Creatinine 1.03 MG/DL Random Glucose 138 MG/DL Total Protein 5.8 GM/DL Albumin 2.9 GM/DL Calcium Level 8.3 MG/DL Alkaline Phosphatase 79 U/L Aspartate Amino Transf (AST/SGOT) 12 U/L Alanine Aminotransferase (ALT/SGPT) 16 U/L Total Bilirubin 0.2 MG/DL Sodium Level 140 MEQ/L Potassium Level 4.0 MEQ/L Chloride Level 105 MEQ/L Carbon Dioxide Level 27.9 MEQ/L Anion Gap 7 MEQ/L Estimat Glomerular Filtration Rate 53 ML/MIN Lipase 193 U/L MDM Medical Decision Making Medical Screen Exam Complete: Yes Emergency Medical Condition: Yes Medical Record Reviewed: Yes Interpretation(s) Laboratory Tests Test 01/09/17 22:00 White Blood Count 8.9 TH/MM3 Red Blood Count 1.75 MIL/MM3 Hemoglobin 5.4 GM/DL Hematocrit 16.1 % Mean Corpuscular Volume 92.2 FL Mean Corpuscular Hemoglobin 30.6 PG Mean Corpuscular Hemoglobin Concent 33.2 % Red Cell Distribution Width 13.4 % Platelet Count 280 TH/MM3 Mean Platelet Volume 8.6 FL Neutrophils (%) (Auto) 76.6 % Lymphocytes (%) (Auto) 18.3 % Monocytes (%) (Auto) 4.0 % Eosinophils (%) (Auto) 0.7 % Basophils (%) (Auto) 0.4 % Neutrophils # (Auto) 6.8 TH/MM3 Lymphocytes # (Auto) 1.6 TH/MM3 Monocytes # (Auto) 0.4 TH/MM3 Eosinophils # (Auto) 0.1 TH/MM3 Basophils # (Auto) 0.0 TH/MM3 CBC Comment DIFF FINAL Differential Comment Prothrombin Time 10.7 SEC Prothromb Time International Ratio 1.0 RATIO Activated Partial Thromboplast Time 22.2 SEC Blood Urea Nitrogen 26 MG/DL Creatinine 1.03 MG/DL Random Glucose 138 MG/DL Total Protein 5.8 GM/DL Albumin 2.9 GM/DL Calcium Level 8.3 MG/DL Alkaline Phosphatase 79 U/L Aspartate Amino Transf (AST/SGOT) 12 U/L Alanine Aminotransferase (ALT/SGPT) 16 U/L Total Bilirubin 0.2 MG/DL Sodium Level 140 MEQ/L Potassium Level 4.0 MEQ/L Chloride Level 105 MEQ/L Carbon Dioxide Level 27.9 MEQ/L Anion Gap 7 MEQ/L Estimat Glomerular Filtration Rate 53 ML/MIN Lipase 193 U/L Differential Diagnosis Differential diagnosis includes upper GI bleed, peptic ulcer disease, gastritis , lower GI bleed, pancreatitis, coagulopathy. Narrative Course IV was established, labs were drawn and sent, and the patient was placed on cardiac telemetry monitoring and continuous pulse oximetry monitoring. The patient was administered Protonix 40 mg intravenously and 1 L of IV fluids. Orthostatic vital signs were obtained. The patient also received Zofran 4 mg intravenously. Orthostatic vital signs are positive with a drop in blood pressure, elevation in heart rate, and near syncope according to the nurse. The patient's hemoglobin was noted to be 5.4, therefore, patient was ordered 2 units of packed red blood cells. The patient was placed on a Protonix drip. The patient dropped her hemoglobin from 11.01 week ago to 5.4 with orthostatic changes, therefore, will be admitted to the intensive care unit for transfusion and evaluation by gastroenterology, patient most likely will need endoscopy to evaluate for possible bleeding peptic ulcer. The patient is comfortable with this plan of care. Critical Care Narrative Aggregate critical care time was 35 minutes. Time to perform other separately billable procedures was not included in the critical care time. My time did not include minutes spent treating any other patients simultaneously or on activities that did not directly contribute to the patient's treatment. The services I provided to this patient were to treat and/or prevent clinically significant deterioration that could result in: Hypotension, myocardial infarction, arrhythmia, hemorrhagic shock, . I provided critical care services requiring my management, as noted below: Chart data review, documentation time, medication orders and management, vital sign assessments/reviewing monitor data, ordering and reviewing lab tests, ordering and interpreting/reviewing x-rays and diagnostic studies, care of the patient and discussion of the patient with the admitting physicians. Physician Communication Physician Communication The on-call charge account clerk was paged for admission. I discussed the patient with Dr. Joseph who agrees with admission. Diagnosis Primary Impression: Symptomatic anemia Additional Impression: Gastrointestinal bleed Qualified Codes: K92.1 - Melena Admitting Information Admitting Physician Requests: Admit Condition: Stable Chris Dumont MD Jan 09, 2017 21:52
[2017-01-09] MEDS ORDERED: ONDANSETRON HCL 4 MG/2 ML VIAL IVP ONE (22:00)
[2017-01-09] MEDS ORDERED: PANTOPRAZOLE SODIUM 40 MG VIAL IVP ONE (22:00)
[2017-01-09] MEDS ORDERED: SODIUM CHLORIDE 0.9% FLUSH 10 ML FLUSH IVF PRN (22:00)
[2017-01-09 22:08] VITALS: BP_SYST 111; BP_SYST 117; BP_SYST 99; BP_DIAS 54; BP_DIAS 59; RESP 16; RESP 18
[2017-01-09 22:44] LABS: AUTOMATED NEUTROPHIL # 6.8 TH/MM3 (1.8-7.7); BASOPHIL % 0.4 % (0.0-2.0); EOSINOPHIL # 0.1 TH/MM3 (0-0.4); EOSINOPHIL % 0.7 % (0.0-4.0); LYMPH % 18.3 % (9.0-44.0); LYMPHOCYTE # 1.6 TH/MM3 (1.0-4.8); MEAN CELL VOLUME 92.2 FL (80.0-100.0); MEAN CORPUSCULAR HEMOGLOBIN 30.6 PG (27.0-34.0); MEAN CORPUSCULAR HGB CONC 33.2 % (32.0-36.0); NEUT % 76.6 % (16.0-70.0); PLATELET COUNT 280 TH/MM3 (150-450); RED BLOOD COUNT 1.75 MIL/MM3 (4.00-5.30); RED CELL DISTRIBUTION WIDTH 13.4 % (11.6-17.2); WHITE BLOOD COUNT 8.9 TH/MM3 (4.0-11.0)
[2017-01-09 22:49] LABS: HEMO FLAGS DIFF FINAL
[2017-01-09 22:52] LABS: HEMATOCRIT 16.1 % (35.0-46.0)
[2017-01-09 22:58] LABS: ANION GAP 7 MEQ/L (5-15); AST (GOT) 12 U/L (15-37); BICARBONATE 27.9 MEQ/L (21.0-32.0); BLOOD UREA NITROGEN 26 MG/DL (7-18); CHLORIDE 105 MEQ/L (98-107); GLOMERULAR FILTRATION RATE 53 ML/MIN (>89); SODIUM (NA) 140 MEQ/L (136-145)
[2017-01-09 22:59] LABS: ALT (GPT) 16 U/L (10-53)
[2017-01-09] MEDS ORDERED: SODIUM CHLOR 0.9% 250 ML INJ 250 ML IV ONE (23:00)
[2017-01-09] MEDS ORDERED: ACETAMINOPHEN 325 MG TAB PO PRN (23:00)
[2017-01-09] MEDS ORDERED: diphenhydrAMINE HCL 25 MG CAP PO PRN (23:00)
[2017-01-09 23:01] LABS: ALKALINE PHOSPHATASE 79 U/L (45-117); APTT (PATIENT) 22.2 SEC (24.3-30.1); PROTHROMBIN TIME - PATIENT 10.7 SEC (9.8-11.6); TOTAL BILIRUBIN ADULT 0.2 MG/DL (0.2-1.0)
[2017-01-09 23:08] VITALS: BP 110/56; PULSE 81; RESP 16; O2SAT 98
--- NOTE | 2017-01-09 23:41 | HHI.HP ---
[facility] Service Critical Care Medicine Primary Care Physician Galina Hill MD Admission Diagnosis symptomatic anemia, upper GI bleed, rule out bleeding peptic ulcer Diagnosis: Travel History International Travel<30 Days: No Contact w/Intl Traveler <30 Da: No Traveled to Known Affected Are: No History of Present Illness 71-year-old female who presents to the for dizziness, lightheadedness , nausea, vomiting, burning epigastric abdominal pain. The patient has similar symptoms 1 week ago was admitted to the hospital where she underwent laboratory evaluation and a CT of the abdomen and pelvis. The patient was noted to have diverticulosis without any evidence of diverticulitis and was subsequent discharged home. The patient followed up with her primary physician, Dr. Hill, who took the patient off of her ARB and placed her on Nexium. The patient states that approximate 4 PM earlier today she developed some epigastric burning pain associated with nausea and vomiting after eaten chicken Parmesan without Phillip sauce. Patient also complains of dark colored stools which appear black with a small amount of blood. The patient denies any known history of peptic ulcer disease and denies taking any anticoagulants or blood thinners. She denies any previous history of endoscopy. In the emergency department she was found to have positive orthostatic vital signs as well as her hemoglobin was found to be 5. She is admitted to critical care unit for gastric peptic ulcer disease with a gastroenterology consultation. Review of Systems Constitutional: COMPLAINS OF: Dizziness, Change in appetite, DENIES: Diaphoretic episodes, Fatigue, Fever, Weight gain, Weight loss, Chills, Night Sweats Endocrine: DENIES: Abnorml menstrual pattern, Heat/cold intolerance, Polydipsia , Polyuria, Polyphagia Eyes: DENIES: Blurred vision, Diplopia, Eye inflammation, Eye pain, Vision loss , Photosensitivity, Double Vision Respiratory: DENIES: Apneas, Cough, Snoring, Wheezing, Hemoptysis, Sputum production, Shortness of breath Cardiovascular: DENIES: Chest pain, Palpitations, Syncope, Dyspnea on Exertion , PND, Lower Extremity Edema, Orthopnea, Claudication Gastrointestinal: COMPLAINS OF: Abdominal pain, Black stools, Constipation, Diarrhea, Nausea, Vomiting, DENIES: Bloody stools, Difficulty Swallowing, Anorexia Genitourinary: DENIES: Abnormal vaginal bleeding, Dysmenorrhea, Dyspareunia, Sexual dysfunction, Urinary frequency, Urinary incontinence, Urgency, Hematuria , Dysuria, Nocturia, Vaginal discharge Musculoskeletal: DENIES: Joint pain, Muscle aches, Stiffness, Joint Swelling, Back pain, Neck pain Hematologic/lymphatic: DENIES: Bruising, Lymphadenopathy Immunologic/allergic: DENIES: Eczema, Urticaria Neurologic: DENIES: Abnormal gait, Headache, Localized weakness, Paresthesias, Seizures, Speech Problems, Tremor, Poor Balance Psychiatric: DENIES: Anxiety, Confusion, Mood changes, Depression, Hallucinations, Agitation, Suicidal Ideation, Homicidal Ideation, Delusions Past Family Social History Allergies: Coded Allergies: benazepril (Unverified Allergy, Severe, COUGH, 01/09/17) captopril (Unverified Allergy, Severe, COUGH, 01/09/17) enalaprilat (Unverified Allergy, Severe, COUGH, 01/09/17) fosinopril (Unverified Allergy, Severe, COUGH, 01/09/17) lisinopril (Unverified Allergy, Severe, COUGH, 01/09/17) quinapril (Unverified Allergy, Severe, COUGH, 01/09/17) Past Medical History Hypertension Dyslipidemia Spinal stenosis and lumbar disc disease Ovarian cysts Past Surgical History Cholecystectomy Left ovary removal Hysterectomy Right great toe bunionectomy Reported Medications Reported Meds & Active Scripts Active Zofran Odt (Ondansetron Odt) 4 Mg Tab 4 Mg SL Q6HR PRN Reported Nexium (Esomeprazole DR) 20 Mg Capdr 20 Mg PO DAILY Citrucel (Methylcellulose) 500 Mg Tab 2 Tab PO DAILY Venlafaxine ER 24 HR (Venlafaxine HCl) 75 Mg Tab 75 Mg PO DAILY Lipitor (Atorvastatin Calcium) 40 Mg Tab 40 Mg PO HS Hyzaar (Losartan-Hydrochlorothiazide) 50-12.5 Mg Tab 1 Tab PO DAILY Active Ordered Medications Current Medications Medications (Trade) Dose Ordered Sig/Bibiana Route PRN Reason Start Time Stop Time Status Last Admin Dose Admin Sodium Chloride 250 ml @ 15 mls/hr ONCE ONCE IV 01/09/17 23:00 01/10/17 15:39 Diphenhydramine HCl (Benadryl) 25 mg UNSCH X1 PRN PO ITCHING 01/09/17 23:00 01/12/17 22:59 Acetaminophen (Tylenol) 650 mg UNSCH X1 PRN PO FEVER 01/09/17 23:00 01/12/17 22:59 Atorvastatin Calcium (Lipitor) 40 mg HS PO 01/10/17 21:00 Venlafaxine HCl (Effexor Xr) 75 mg DAILY PO 01/10/17 09:00 Patient Own Medication PT OWN MED: CITRUCE... DAILY PO 01/10/17 09:00 Future Hold Sodium Chloride 1,000 ml @ 125 mls/hr Q8H IV 01/09/17 23:44 01/09/17 23:55 Sodium Chloride (NS Flush) 2 ml UNSCH PRN .XX FLUSH AFTER USING IV ACCESS 01/09/17 23:45 Sodium Chloride (NS Flush) 2 ml BID .XX 01/10/17 09:00 Acetaminophen (Tylenol) 650 mg Q6H PRN PO PAIN 1-10 AND/OR FEVER >101F 01/09/17 23:45 Morphine Sulfate (Morphine Inj) 2 mg Q2H PRN IV PAIN SCALE 6 TO 10 01/09/17 23:45 Pantoprazole Sodium (Protonix Inj) 40 mg Q12H IV 01/09/17 23:45 Ondansetron HCl (Zofran Inj) 4 mg Q6H PRN IV NAUSEA OR VOMITING 01/09/17 23:45 Zolpidem Tartrate (Ambien) 5 mg HS PRN PO INSOMNIA 01/09/17 23:45 Albuterol/ Ipratropium (Duoneb Neb) 1 ampule Q2HR NEB PRN INH WHEEZING 01/09/17 23:45 Miscellaneous Information 1 Q361D XX 01/09/17 23:45 Chlorhexidine Gluconate (Chlorhexidine 2% Cloth) 3 pack Taper DAILY@04 TOP 01/10/17 04:00 01/06/18 03:59 Chlorhexidine Gluconate (Chlorhexidine 2% Cloth) 3 pack UNSCH PRN TOP HYGIENIC CARE 01/09/17 23:45 Senna/Docusate Sodium (Kendra-Colace) 1 tab BID PO 01/10/17 09:00 Magnesium Hydroxide (Milk Of Magnesia Liq) 30 ml Q12H PRN PO MILD - MODERATE CONSTIPATION 01/09/17 23:45 Sennosides (Senokot) 17.2 mg Q12H PRN PO MODERATE - SEVERE CONSTIPATION 01/09/17 23:45 Bisacodyl (Dulcolax Supp) 10 mg DAILY PRN RECTAL SEVERE CONSITIPATION 01/09/17 23:45 Lactulose (Lactulose Liq) 30 ml DAILY PRN PO SEVERE CONSITIPATION 01/09/17 23:45 Family History No family history of early coronary artery disease or cancer Social History Negative for alcohol tobacco or illicit drug abuse Physical Exam Vital Signs Vital Signs Date Time Temp Pulse Resp B/P (MAP) Pulse Ox O2 Delivery O2 Flow Rate FiO2 01/09/17 23:08 81 16 110/56 (74) 98 Room Air 01/09/17 22:08 78 16 117/59 (78) 98 18 111/59 (76) 96 18 99/54 (69) 01/09/17 21:46 97.7 01/09/17 21:45 80 18 124/59 (80) 95 Room Air Physical Exam GENERAL: Well-nourished, well-developed patient. However extremely pale SKIN: Warm and dry. HEAD: Normocephalic. EYES: No scleral icterus. No injection or drainage. NECK: Supple, trachea midline. No JVD or lymphadenopathy. CARDIOVASCULAR: Regular rate and rhythm without murmurs, gallops, or rubs. RESPIRATORY: Breath sounds equal bilaterally. No accessory muscle use. GASTROINTESTINAL: Abdomen soft, non-tender, nondistended. MUSCULOSKELETAL: No cyanosis, or edema. BACK: Nontender without obvious deformity. NEURO EXAM: GCS: M 6 V 5 E4 Mental Status: The patient is alert and oriented to person, place, and time with normal speech. Cranial Nerves: Visual acuity intact bilaterally. Visual sood normal in all quadrants. Pupils are round, reactive to light. Extraocular movements are intact without ptosis. Hearing is normal bilaterally. Voice is normal. Tongue protrudes midline and moves symmetrically. Reflexes: Biceps, patellar, and Achilles are 2/4 bilaterally. No clonus. Sensation: Sensation is intact bilaterally to pain and light touch. Two-point discrimination is intact. Motor: Good muscle tone. Strength is 5/5 bilaterally. Cerebellar: [id number] and [id number] test normal bilaterally. Laboratory Laboratory Tests Test 01/09/17 22:00 White Blood Count 8.9 Red Blood Count 1.75 Hemoglobin 5.4 Hematocrit 16.1 Mean Corpuscular Volume 92.2 Mean Corpuscular Hemoglobin 30.6 Mean Corpuscular Hemoglobin Concent 33.2 Red Cell Distribution Width 13.4 Platelet Count 280 Mean Platelet Volume 8.6 Neutrophils (%) (Auto) 76.6 Lymphocytes (%) (Auto) 18.3 Monocytes (%) (Auto) 4.0 Eosinophils (%) (Auto) 0.7 Basophils (%) (Auto) 0.4 Neutrophils # (Auto) 6.8 Lymphocytes # (Auto) 1.6 Monocytes # (Auto) 0.4 Eosinophils # (Auto) 0.1 Basophils # (Auto) 0.0 CBC Comment DIFF FINAL Differential Comment Prothrombin Time 10.7 Prothromb Time International Ratio 1.0 Activated Partial Thromboplast Time 22.2 Blood Urea Nitrogen 26 Creatinine 1.03 Random Glucose 138 Total Protein 5.8 Albumin 2.9 Calcium Level 8.3 Alkaline Phosphatase 79 Aspartate Amino Transf (AST/SGOT) 12 Alanine Aminotransferase (ALT/SGPT) 16 Total Bilirubin 0.2 Sodium Level 140 Potassium Level 4.0 Chloride Level 105 Carbon Dioxide Level 27.9 Anion Gap 7 Estimat Glomerular Filtration Rate 53 Lipase 193 Result Diagram: 01/09/17219901/09/172199 Caprini VTE Risk Assessment Caprini VTE Risk Assessment: Mod/High Risk (score >= 2) Caprini Risk Assessment Model Point Value = 1 Point Value = 2 Point Value = 3 Point Value = 5 Age 41-60 Minor surgery BMI > 25 kg/m2 Swollen legs Varicose veins or History of unexplained or recurrent spontaneous Oral contraceptives or hormone replacement Sepsis (< 1 month) Serious lung disease, including pneumonia (< 1 month) Abnormal pulmonary function Acute myocardial infarction Congestive heart failure (< 1 month) History of inflammatory bowel disease Medical patient at bed rest Age 61-74 Arthroscopic surgery Major open surgery (> 45 min) Laparoscopic surgery (> 45 min) Malignancy Confined to bed (> 72 hours) Immobilizing plaster cast Central venous access Age >= 75 History of VTE Family history of VTE Factor V Leiden Prothrombin 84110B Lupus anticoagulant Anticardiolipin antibodies Elevated serum homocysteine Heparin-induced thrombocytopenia Other congenital or acquired thrombophilia Stroke (< 1 month) Elective arthroplasty Hip, pelvis, or leg fracture Acute spinal cord injury (< 1 month) Prophylaxis Regimen Total Risk Factor Score Risk Level Prophylaxis Regimen 0-1 Low Early ambulation 2 Moderate Order ONE of the following: *Sequential Compression Device (SCD) *Heparin 5000 units SQ BID 3-4 Higher Order ONE of the following medications: *Heparin 5000 units SQ TID *Enoxaparin/Lovenox 40 mg SQ daily (WT < 150 kg, CrCl > 30 mL/min) *Enoxaparin/Lovenox 30 mg SQ daily (WT < 150 kg, CrCl > 10-29 mL/min) *Enoxaparin/Lovenox 30 mg SQ BID (WT < 150 kg, CrCl > 30 mL/min) AND/OR *Sequential Compression Device (SCD) 5 or more Highest Order ONE of the following medications: *Heparin 5000 units SQ TID (Preferred with Epidurals) *Enoxaparin/Lovenox 40 mg SQ daily (WT < 150 kg, CrCl > 30 mL/min) *Enoxaparin/Lovenox 30 mg SQ daily (WT < 150 kg, CrCl > 10-29 mL/min) *Enoxaparin/Lovenox 30 mg SQ BID (WT < 150 kg, CrCl > 30 mL/min) AND *Sequential Compression Device (SCD) Assessment and Plan Assessment and Plan GI bleed - Underlying peptic ulcer disorder?? - Protonix IV twice a day - GI consult - Fluid and PRBC resuscitation Hypertension - Hold home antihypertensive meds due to active GI bleed - Telemetry - Resume when stable Dyslipidemia - Atorvastatin Anemia - Blood loss anemia - Transfuse PRBC to keep hemoglobin above 7 - Serial H&H DVT GI prophylaxis - Teds SCDs - No pharmacological DVT tachycardia GI bleed - Protonix IV twice a day Critical Care: The total critical care time was 35 minutes. Time to perform other separately billable procedures was not included in the critical care time. Dion Joseph MD Jan 09, 2017 23:41
[2017-01-09] MEDS ORDERED: RESP: ALBUTEROL 2.5 MG/IPRATROPIUM 0.5 MG NEB (PRN) INH (23:45)
[2017-01-09] MEDS ORDERED: CHLORHEXIDINE GLUCONATE 2 % 1 PACK (2 CLOTHS) TOP PRN (23:45)
[2017-01-09] MEDS ORDERED: MISCELLANEOUS NURSING INFORMATION XX SCH (23:45)
[2017-01-09] MEDS ORDERED: MORPHINE SULFATE 4 MG/ML INJ IV PRN (23:45)
[2017-01-09] MEDS ORDERED: MAGNESIUM HYDROXIDE SUSP 30 ML CUP PO PRN (23:45)
[2017-01-09] MEDS ORDERED: SENNOSIDES 8.6 MG TAB PO PRN (23:45)
[2017-01-09] MEDS ORDERED: PANTOPRAZOLE SODIUM 40 MG VIAL IV SCH (23:45)
[2017-01-09] MEDS ORDERED: SODIUM CHLORIDE 0.9% FLUSH 10 ML FLUSH PRN (23:45)
[2017-01-09] MEDS ORDERED: BISACODYL 10 MG SUPP RECTAL PRN (23:45)
[2017-01-09] MEDS ORDERED: LACTULOSE SYRUP 20 GM/30 ML CUP PO PRN (23:45)
[2017-01-09] MEDS ORDERED: ZOLPIDEM TARTRATE 5 MG TAB PO PRN (23:45)
[2017-01-09] MEDS: SODIUM CHLOR 0.9% 1000 ML INJ 1,000 ML IV SCH (23:55)
[2017-01-10] VITALS (14 sets, daily range): BP systolic 114–131; BP diastolic 56–63; PULSE 72–113; RESP 14–39; TEMP 98.2–99.5; O2SAT 95–99
[2017-01-10] MEDS: CHLORHEXIDINE GLUCONATE 2 % 1 PACK (2 CLOTHS) TOP SCH (04:00)
--- NOTE | 2017-01-10 07:38 | HHI.CCPN ---
Subjective Remarks/Hospital Course 71-year-old female who presents to the for dizziness, lightheadedness , nausea, vomiting, burning epigastric abdominal pain. The patient has similar symptoms 1 week ago was admitted to the hospital where she underwent laboratory evaluation and a CT of the abdomen and pelvis. The patient was noted to have diverticulosis without any evidence of diverticulitis and was subsequent discharged home. The patient followed up with her primary physician, Dr. Hill, who took the patient off of her ARB and placed her on Nexium. The patient states that approximate 4 PM earlier today she developed some epigastric burning pain associated with nausea and vomiting after eaten chicken Parmesan without Phillip sauce. Patient also complains of dark colored stools which appear black with a small amount of blood. The patient denies any known history of peptic ulcer disease and denies taking any anticoagulants or blood thinners. She denies any previous history of endoscopy. In the emergency department she was found to have positive orthostatic vital signs as well as her hemoglobin was found to be 5. She is admitted to critical care unit for gastric peptic ulcer disease with a gastroenterology consultation. Subjective 01/10: Afebrile. No further nausea/vomiting or bowel movements. Currently normal sinus rhythm. Denies chest pain, shortness of breath or abdominal pain. Appears comfortable. Status post 2 units PRBCs. Objective Vital Signs Date Time Temp Pulse Resp B/P (MAP) Pulse Ox O2 Delivery O2 Flow Rate FiO2 01/10/17 04:28 78 39 121/57 (78) 98 01/10/17 04:00 98.9 01/10/17 01:58 Room Air Intake and Output 01/10/17 01/10/17 01/10/17 07:59 15:59 23:59 Intake Total 650 ml Output Total 425 ml Balance 225 ml Result Diagram: 01/09/17219901/09/172199 Objective Remarks GENERAL: 71-year-old female, resting in bed in no acute distress SKIN: Cool and dry. No rash. Appears well perfused. HEAD: Normocephalic. Atraumatic EYES: Pupils are 3 L bilaterally and reactive No scleral icterus. No injection or drainage. NECK: Supple, trachea midline. No JVD or lymphadenopathy. CARDIOVASCULAR: Regular rate and rhythm. S1, S2. No S4. Without murmur without murmurs, gallops, or rubs. RESPIRATORY: Essentially clear to auscultation bilaterally without wheezes rales or rhonchi. GASTROINTESTINAL: Abdomen soft, non-tender, nondistended. Umbilical hernia is soft and reducible. MUSCULOSKELETAL: No independent peripheral edema BACK: Nontender without obvious deformity. NEURO EXAM: Cranial nerves II through XII grossly intact. Strength is equal and symmetric bilaterally. Normal sensation to light touch and pinprick. A/P Assessment and Plan Neuro/Psych: Depression Cataracts Continue venlafaxine 75 mg by mouth daily for depression Acetaminophen 650 mg by mouth every 6 hours fever/pain 1 through 5 Morphine sulfate 2 mg IV every 2 hours when necessary pain 6-10 CV: Hypertension Dyslipidemia Currently on normal saline at 125 cc an hour Currently on atorvastatin 40 mg by mouth daily for dyslipidemia Holding losartan/chlorothiazide 50/12.5 mg daily for hypertension in light of acute bleeding. Resume when clinically indicated Resp: Nasal cannula to maintain saturations greater than equal to 92% Incentive spirometry while awake GI: GI bleed likely upper Colonic diverticulosis Constipation Status post cholecystectomy Umbilical hernia Hypoalbuminemia Currently on pantoprazole drip. Received 80 mg bolus in ED. Currently at 8 mg an hour. 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 Creatinine 1.1 - 1.2 last admission 01/02 with GFR around 50 Currently normal saline at 125 cc an hour. Monitor urine output. 30 cc an hour. Accurate I's and O's Heme: Acute blood loss anemia Hemoglobin 5.4 initial. Baseline 11 one week ago. Transfuse 2 units PRBCs. Recheck this AM. Coags within normal limits. ID: Monitor for infection FEN: Replace electrolytes as clinically indicated MSK: Spinal stenosis PT evaluate and treat Access - Utilize peripheral IV. Central line if indicated Prophylaxis - GI - pantoprazole drip - DVT - SCD/pharmacological prophylaxis contra indicated with acute hemorrhage Critical Care: Level II follow-up Ulises Gan MD Jan 10, 2017 07:38
[2017-01-10] MEDS ORDERED: GLUCAGON 1 MG/ML VIAL OTHER PRN (08:00)
[2017-01-10] MEDS ORDERED: DEXTROSE 50% IN WATER 50 ML VIAL(D50) IV PRN (08:00)
--- NOTE | 2017-01-10 08:03 | PD.CONS ---
HPI History of Present Illness This is a 71 year old female who presented to the ER for evaluation of dizziness /lightheadedness, and epigastric pain with associated nausea and vomiting. She reports a hx of chronic back pain related to spinal stenosis. A few months ago, she started taking Meloxicam for this. About 3 weeks ago, she started having intermittent epigastric pain that radiated to her sides and back with intermittent nausea and vomiting. She was evaluated by her PCP and was also seen in the ER x 2 (12/30, 01/01). CT Scan abdomen and pelvis without IV contrast (12/30/16)-----> diverticulosis without diverticulitis, s/p cholecystectomy, small fat-containing umbilical hernia, calcified leiomyoma. She was discharged home and then seen by Dr. Goldberg. She reports that her B/P was low at that time, so he stopped her blood pressure medicine and started her on Nexium on Monday. Over the weekend, her symptoms gradually improved and yesterday, she thought she was doing better and had some chicken with noodles, but no red sauce. Shortly after she started having the same abdominal pain and vomited red blood x 3. She came to the ER for further evaluation. She denies any prior history of PUD. She last had a colonoscopy 2006, benign polyps. 2 years ago she had the colorectal screening stool test. She does not drink ETOH. (Janett Guerrero) PFSH Past Medical History Hypertension Dyslipidemia Spinal stenosis and lumbar disc disease Ovarian cysts Diverticulosis Chronic back pain Colon polyps Past Surgical History Cholecystectomy Left ovary removal Hysterectomy Right great toe bunionectomy Colonoscopy (Janett Guerrero) Coded Allergies: benazepril (Unverified Allergy, Severe, COUGH, 01/09/17) captopril (Unverified Allergy, Severe, COUGH, 01/09/17) enalaprilat (Unverified Allergy, Severe, COUGH, 01/09/17) fosinopril (Unverified Allergy, Severe, COUGH, 01/09/17) lisinopril (Unverified Allergy, Severe, COUGH, 01/09/17) quinapril (Unverified Allergy, Severe, COUGH, 01/09/17) Medications Allergies Coded Allergies Type Severity Reaction Last Updated Verified benazepril Allergy Severe COUGH 01/09/17 No captopril Allergy Severe COUGH 01/09/17 No enalaprilat Allergy Severe COUGH 01/09/17 No fosinopril Allergy Severe COUGH 01/09/17 No lisinopril Allergy Severe COUGH 01/09/17 No quinapril Allergy Severe COUGH 01/09/17 No Active Scripts Medications Dose Route/Sig Max Daily Dose Days Date Category Nexium (Esomeprazole DR) 20 Mg Capdr 20 Mg PO DAILY 01/09/17 Reported Citrucel (Methylcellulose) 500 Mg Tab 2 Tab PO DAILY 01/09/17 Reported Zofran Odt (Ondansetron Odt) 4 Mg Tab 4 Mg SL Q6HR PRN 01/02/17 Rx Venlafaxine ER 24 HR (Venlafaxine HCl) 75 Mg Tab 75 Mg PO DAILY 01/01/17 Reported Lipitor (Atorvastatin Calcium) 40 Mg Tab 40 Mg PO HS 01/01/17 Reported Hyzaar (Losartan-Hydrochlorothiazide) 50-12.5 Mg Tab 1 Tab PO DAILY 01/01/17 Reported Family History No family history of early coronary artery disease or cancer Social History Negative for alcohol tobacco or illicit drug abuse (Janett Guerrero) Review of Systems Constitutional: COMPLAINS OF: Fatigue, Change in appetite, DENIES: Fever, Weight loss, Chills Respiratory: DENIES: Cough Cardiovascular: DENIES: Chest pain Gastrointestinal: COMPLAINS OF: Abdominal pain, Nausea, Vomiting, Hematemesis, DENIES: Black stools, Bloody stools, Constipation, Diarrhea, Heartburn Musculoskeletal: COMPLAINS OF: Joint pain, Back pain Integumentary: DENIES: Abnormal pigmentation Hematologic/lymphatic: DENIES: Bruising Neurologic: DENIES: Headache Psychiatric: DENIES: Confusion (Janett Guerrero) GI Exam Vitals I&O Vital Signs Date Time Temp Pulse Resp B/P (MAP) Pulse Ox O2 Delivery O2 Flow Rate FiO2 01/10/17 04:28 78 39 121/57 (78) 98 01/10/17 04:00 98.9 77 19 121/57 (78) 96 01/10/17 03:00 82 21 120/57 (78) 99 01/10/17 02:46 01/10/17 01:58 81 16 114/57 (76) 96 Room Air 8/22/17 01:57 98 Room Air 01/10/17 01:29 98.2 82 14 115/57 (76) 96 Room Air 01/09/17 23:08 81 16 110/56 (74) 98 Room Air 01/09/17 22:08 78 16 117/59 (78) 98 18 111/59 (76) 96 18 99/54 (69) 01/09/17 21:46 97.7 01/09/17 21:45 80 18 124/59 (80) 95 Room Air I/O 01/09/17 01/09/17 01/09/17 01/10/17 01/10/17 01/10/17 06:59 14:59 22:59 06:59 14:59 22:59 Intake Total 2000 ml 650 ml Output Total 425 ml Balance 2000 ml 225 ml Intake IV Total 2000 ml 150 ml Packed Cells 500 ml Output Urine Total 425 ml # Voids 1 Laboratory Test 01/09/17 22:00 01/10/17 03:38 White Blood Count 8.9 TH/MM3 Red Blood Count 1.75 MIL/MM3 Hemoglobin 5.4 GM/DL Hematocrit 16.1 % Mean Corpuscular Volume 92.2 FL Mean Corpuscular Hemoglobin 30.6 PG Mean Corpuscular Hemoglobin Concent 33.2 % Red Cell Distribution Width 13.4 % Platelet Count 280 TH/MM3 Mean Platelet Volume 8.6 FL Neutrophils (%) (Auto) 76.6 % Lymphocytes (%) (Auto) 18.3 % Monocytes (%) (Auto) 4.0 % Eosinophils (%) (Auto) 0.7 % Basophils (%) (Auto) 0.4 % Neutrophils # (Auto) 6.8 TH/MM3 Lymphocytes # (Auto) 1.6 TH/MM3 Monocytes # (Auto) 0.4 TH/MM3 Eosinophils # (Auto) 0.1 TH/MM3 Basophils # (Auto) 0.0 TH/MM3 CBC Comment DIFF FINAL Differential Comment Prothrombin Time 10.7 SEC Prothromb Time International Ratio 1.0 RATIO Activated Partial Thromboplast Time 22.2 SEC Blood Urea Nitrogen 26 MG/DL Creatinine 1.03 MG/DL Random Glucose 138 MG/DL Total Protein 5.8 GM/DL Albumin 2.9 GM/DL Calcium Level 8.3 MG/DL Alkaline Phosphatase 79 U/L Aspartate Amino Transf (AST/SGOT) 12 U/L Alanine Aminotransferase (ALT/SGPT) 16 U/L Total Bilirubin 0.2 MG/DL Sodium Level 140 MEQ/L Potassium Level 4.0 MEQ/L Chloride Level 105 MEQ/L Carbon Dioxide Level 27.9 MEQ/L Anion Gap 7 MEQ/L Estimat Glomerular Filtration Rate 53 ML/MIN Lipase 193 U/L Physical Examination HEENT: Normocephalic; atraumatic; no jaundice. CHEST: CTA CARDIAC: RRR ABDOMEN: Soft, nondistended, nontender; no hepatosplenomegaly; bowel sounds are present in all four quadrants. EXTREMITIES: No clubbing, cyanosis, or edema. SKIN: Normal; no rash; no jaundice. PARKING LOT CHAUFFEUR: No focal deficits; alert and oriented times three. (Janett Guerrero) Assessment and Plan Plan ASSESSMENT: - GIB, hematemesis. Denies any hx of PUD. Has been taking meloxicam for her chronic back pain r/t spinal stenosis x 2 months. Intermittent epigastric pain with n/v x 3 weeks. Started Nexium Monday, was feeling better, but symptoms returned yesterday after eating chicken with noodles (no red sauce) and she vomited red blood x 3. NPO. Protonix Gtt. - Abdominal pain with n/v x [address] Scan abdomen and pelvis without IV contrast (12/30/16)-----> diverticulosis without diverticulitis, s/p cholecystectomy, small fat-containing umbilical hernia, calcified leiomyoma. (+) NSAID use. - Severe Anemia, acute blood loss. HH 5.4/16.1. S/P 2 units PRBC - DARRYL. Mild. Likely related to acute blood loss/GIB. Creat 1.03 now. - HTN, Hyperlipidmia, depression, chronic back pain/spinal stenosis per attending. PLAN: - Plan for egd today - Obtain consents - NPO - Protonix gtt - Monitor HH - Transfuse as necessary - Supportive care - Further recommendations to follow based on results of above - Pt seen and examined by Dr. Perez and myself and this note is written on his behalf (Janett Guerrero) Physician Comments Plan as above, will proceed with EGD today . Further recommendations to follow. (Delmer Perez MD) Janett Guerrero Jan 10, 2017 08:03 Delmer Perez MD Jan 10, 2017 09:10
[2017-01-10] MEDS ORDERED: PANTOPRAZOLE INJ 80 MG in SODIUM CHLORIDE 0.9% INJ 100 ML IV SCH ×3 (08:35)
[2017-01-10] MEDS: PANTOPRAZOLE INJ 80 MG in SODIUM CHLORIDE 0.9% INJ 100 ML IV SCH ×2 (08:43→17:34)
[2017-01-10] MEDS: DOCUSATE SODIUM 50 MG/SENNA 8.6 MG TAB PO SCH ×2 (08:43→20:18)
[2017-01-10] MEDS: SODIUM CHLOR 0.9% 1000 ML INJ 1,000 ML IV SCH ×3 (08:43→23:44)
[2017-01-10] MEDS: SODIUM CHLORIDE 0.9% FLUSH 10 ML FLUSH SCH ×2 (08:43→20:18)
[2017-01-10] MEDS: VENLAFAXINE HCL XR 75 MG CAP PO SCH (08:44)
[2017-01-10] MEDS ORDERED: CITRUCEL PO SCH (09:00)
[2017-01-10 10:57] LABS: AUTOMATED NEUTROPHIL # 8.4 TH/MM3 (1.8-7.7); BASOPHIL % 0.4 % (0.0-2.0); EOSINOPHIL # 0.1 TH/MM3 (0-0.4); EOSINOPHIL % 0.6 % (0.0-4.0); HEMATOCRIT 23.2 % (35.0-46.0); HEMO FLAGS AUTO DIFF; LYMPH % 20.4 % (9.0-44.0); LYMPHOCYTE # 2.3 TH/MM3 (1.0-4.8); MEAN CORPUSCULAR HEMOGLOBIN 29.5 PG (27.0-34.0); MEAN CORPUSCULAR HGB CONC 33.1 % (32.0-36.0); MONO % 4.9 % (0.0-8.0); NEUT % 73.7 % (16.0-70.0); PLATELET COUNT 244 TH/MM3 (150-450); RED CELL DISTRIBUTION WIDTH 15.4 % (11.6-17.2); WHITE BLOOD COUNT 11.4 TH/MM3 (4.0-11.0)
[2017-01-10] MEDS: INSULIN NovoLIN REGULAR SUPPLEMENTAL SCALE SQ SCH ×3 (11:00→20:18)
[2017-01-10 11:04] LABS: PROTHROMBIN TIME - PATIENT 10.7 SEC (9.8-11.6)
[2017-01-10 11:24] LABS: ALT (GPT) 15 U/L (10-53); ANION GAP 7 MEQ/L (5-15); AST (GOT) 14 U/L (15-37); BLOOD UREA NITROGEN 33 MG/DL (7-18); CHLORIDE 111 MEQ/L (98-107); GLOMERULAR FILTRATION RATE 61 ML/MIN (>89); MAGNESIUM 2.3 MG/DL (1.5-2.5); POTASSIUM 4.1 MEQ/L (3.5-5.1); SODIUM (NA) 145 MEQ/L (136-145)
[2017-01-10 11:26] LABS: ALKALINE PHOSPHATASE 71 U/L (45-117); TOTAL BILIRUBIN ADULT 1.1 MG/DL (0.2-1.0)
[2017-01-10 11:29] LABS: BANDS 5 % (0-6); EOSINOPHILS 1 % (0-4); MYELOCYTES 1 % (0-0); NEUTROPHIL # MANUAL DIFF 8.1 TH/MM3 (1.8-7.7); PLATELET ESTIMATE SMEAR NORMAL (NORMAL); PLATELET MORPHOLOGY NORMAL (NORMAL); POLYS (SEG NEUTROPHILS) 65 % (16-70); SCAN/DIFF FINAL DIFF MANUAL; WBC DIFF SAMPLE 100
[2017-01-10] MEDS ORDERED: PROPOFOL 200 MG/20 ML AMP IV ONE (13:27)
--- NOTE | 2017-01-10 13:40 | GIPROC ---
[facility] [address] [facility]. [facility], [address] EGD PROCEDURE REPORT EXAM DATE: 01/10/2017 PATIENT NAME: Maria R Lee MR #: [id number] BIRTHDATE: 1945 ATTENDING: Delmer Perez MD ORDER #: [id number] COIL WINDER HAND: STATUS: inpatient INDICATIONS: The patient is a 71 yr old female here for an EGD due to acute post hemorrhagic anemia and hematemesis PROCEDURE PERFORMED: EGD w/ biopsy MEDICATIONS: None and Per Anesthesia. TOPICAL ANESTHETIC: none CONSENT: The patient understands the risks and benefits of the procedure and understands that these risks include, but are not limited to: sedation, allergic reaction, infection, perforation and/or bleeding. Alternative means of evaluation and treatment include, among others: physical exam, x-rays, and/or surgical intervention. The patient elects to proceed with this endoscopic procedure. medical equipment was checked for proper function. Hand hygiene and appropriate measures for infection prevention was taken. After the risks, benefits and alternatives of the procedure were thoroughly explained, Informed consent was verified, confirmed and timeout was successfully executed by the treatment team. The patient was anesthetized with topical anesthesia and the endoscope was introduced through the mouth and advanced to the second portion of the duodenum. Retroflexed views revealed a hiatal hernia and Retroflexed views revealed The gastroscope was then slowly withdrawn and removed. ESOPHAGUS: Fresh blood was found in the entire esophagus. STOMACH: Fresh blood in the entire stomach. There was mild erosive gastritis with heme present in the gastric body. Multiple biopsies were performed using cold forceps. Sample sent for histology. DUODENUM: A large bleeding, round and deep ulcer with a visible vessel and active bleeding was found in the 1st part of the duodenum. Complete hemostasis was achieved by placing two Cook instinct hemoclips on the bleeding site(s). The duodenal mucosa appeared normal in the 2nd part of the duodenum. ADVERSE EVENTS: There were no complications. IMPRESSIONS: 1. Blood in the entire esophagus 2. Fresh blood in the entire stomach 3. There was mild gastritis in the gastric body; multiple biopsies were performed 4. Large ulcer was found in the 1st part of the duodenum; Complete hemostasis was achieved by placing two hemoclips on the bleeding site(s) 5. Normal duodenal mucosa in the 2nd part of the duodenum 6. Retroflexed views revealed a hiatal hernia RECOMMENDATIONS: 1. Await biopsy results. Biopsy results will not be ready for 7-10 days. If you don't hear from us in two weeks, call our office for biopsy results. 2. Continue PPI 3. Keep NPO PATIENT CONDITION: stable DISPOSITION: Observation REPEAT EXAM: NONE Delmer Perez MD eSigned: Delmer Perez MD 01/10/2017 1:40 PM cc: PATIENT NAME: Maria R Lee MR#: [id number]
[2017-01-10] MEDS ORDERED: DO NOT ADM ANY ANTICOAGULANT DRUGS PRN (13:42)
[2017-01-10] MEDS ORDERED: *morphine SULFATE 8 MG/ML PERIprocedure ONLY ONE (14:17)
[2017-01-10] MEDS: ONDANSETRON HCL 4 MG/2 ML VIAL IV PRN (14:54)
[2017-01-10] MEDS: ACETAMINOPHEN 325 MG TAB PO PRN (17:34)
[2017-01-10 17:53] LABS: HEMATOCRIT 21.4 % (35.0-46.0); REVIEW FLAG FINAL
[2017-01-10] MEDS: ATORVASTATIN 40 MG TAB PO SCH (20:18)
[2017-01-11] VITALS (19 sets, daily range): BP systolic 106–138; BP diastolic 51–65; PULSE 71–87; RESP 15–22; TEMP 98.1–98.9; O2SAT 95–100
[2017-01-11 01:28] LABS: REVIEW FLAG FINAL
[2017-01-11 01:30] LABS: HEMATOCRIT 16.4 % (35.0-46.0)
[2017-01-11] MEDS: PANTOPRAZOLE INJ 80 MG in SODIUM CHLORIDE 0.9% INJ 100 ML IV SCH ×3 (02:35→22:27)
[2017-01-11] MEDS: CHLORHEXIDINE GLUCONATE 2 % 1 PACK (2 CLOTHS) TOP SCH (02:35)
[2017-01-11] MEDS: INSULIN NovoLIN REGULAR SUPPLEMENTAL SCALE SQ SCH ×4 (07:00→20:25)
[2017-01-11] MEDS: SODIUM CHLOR 0.9% 1000 ML INJ 1,000 ML IV SCH ×3 (07:44→22:27)
[2017-01-11] MEDS: SODIUM CHLORIDE 0.9% FLUSH 10 ML FLUSH SCH ×2 (08:48→20:26)
[2017-01-11] MEDS: VENLAFAXINE HCL XR 75 MG CAP PO SCH (08:48)
[2017-01-11] MEDS: DOCUSATE SODIUM 50 MG/SENNA 8.6 MG TAB PO SCH ×2 (08:49→20:25)
--- NOTE | 2017-01-11 10:17 | HHI.CCPN ---
Subjective Remarks/Hospital Course 71-year-old female who presents to the for dizziness, lightheadedness , nausea, vomiting, burning epigastric abdominal pain. The patient has similar symptoms 1 week ago was admitted to the hospital where she underwent laboratory evaluation and a CT of the abdomen and pelvis. The patient was noted to have diverticulosis without any evidence of diverticulitis and was subsequent discharged home. The patient followed up with her primary physician, Dr. Hill, who took the patient off of her ARB and placed her on Nexium. The patient states that approximate 4 PM earlier today she developed some epigastric burning pain associated with nausea and vomiting after eaten chicken Parmesan without Phillip sauce. Patient also complains of dark colored stools which appear black with a small amount of blood. The patient denies any known history of peptic ulcer disease and denies taking any anticoagulants or blood thinners. She denies any previous history of endoscopy. In the emergency department she was found to have positive orthostatic vital signs as well as her hemoglobin was found to be 5. She is admitted to critical care unit for gastric peptic ulcer disease with a gastroenterology consultation. 01/10: Afebrile. No further nausea/vomiting or bowel movements. Currently normal sinus rhythm. Denies chest pain, shortness of breath or abdominal pain. Appears comfortable. Status post 2 units PRBCs. Subjective 01/11: Afebrile. Hemoglobin dropped to 5.3 overnight. No bowel movement overnight. Complaining only of some vague abdominal discomfort. Transfused 3 additional units of PRBCs. A.m. laboratories pending. Noted large duodenal ulcer first part with visible vessel status post 2 Cook hemoclips. Hemodynamically stable. Objective Vital Signs Date Time Temp Pulse Resp B/P (MAP) Pulse Ox O2 Delivery O2 Flow Rate FiO2 01/11/17 10:01 98.4 86 18 128/65 99 01/11/17 08:11 Nasal Cannula 1.00 Intake and Output 01/11/17 01/11/17 01/12/17 08:00 16:00 00:00 Intake Total 2210 ml 265 ml Balance 2210 ml 265 ml Result Diagram: 01/11/17 0041 01/10/17 0920 Objective Remarks GENERAL: 71-year-old female, resting in bed in no acute distress SKIN: Cool and dry. No rash. Appears well perfused. HEAD: Normocephalic. Atraumatic EYES: Pupils are 3 L bilaterally and reactive No scleral icterus. No injection or drainage. NECK: Supple, trachea midline. No JVD or lymphadenopathy. CARDIOVASCULAR: Regular rate and rhythm. S1, S2. No S4. Without murmur without murmurs, gallops, or rubs. RESPIRATORY: Essentially clear to auscultation bilaterally without wheezes rales or rhonchi. GASTROINTESTINAL: Abdomen soft, non-tender, nondistended. Umbilical hernia is soft and reducible. MUSCULOSKELETAL: No independent peripheral edema BACK: Nontender without obvious deformity. NEURO EXAM: Cranial nerves II through XII grossly intact. Strength is equal and symmetric bilaterally. Normal sensation to light touch and pinprick. A/P Assessment and Plan Neuro/Psych: Depression Cataracts Continue venlafaxine 75 mg by mouth daily for depression Acetaminophen 650 mg by mouth every 6 hours fever/pain 1 through 5 Morphine sulfate 2 mg IV every 2 hours when necessary pain 6-10 CV: Hypertension Dyslipidemia Currently on normal saline at 125 cc an hour Currently on atorvastatin 40 mg by mouth daily for dyslipidemia Holding losartan/chlorothiazide 50/12.5 mg daily for hypertension in light of acute bleeding. Resume when clinically indicated Resp: Nasal cannula to maintain saturations greater than equal to 92% Incentive spirometry while awake GI: Large duodenal ulcer with visible vessel status post 2 Cook hemoclips 01/10 Colonic diverticulosis Constipation Status post cholecystectomy Umbilical hernia Hypoalbuminemia Currently on pantoprazole drip. Received 80 mg bolus in ED. Currently at 8 mg an hour. GI consultation for endoscopy - 01/10 with first burn esophagus coming stomach. Gastric erosions status post multiple masses. Large duodenal ulcer with visible vessel status post Cook Hemoclip Patient is on esomeprazole 20 mg daily for GERD Patient is on Citrucel for constipation See heme : [place] catheter if indicated for accurate I's and O's in a critically ill patient DEVELOPER PROGRAMMER: Right calcified leomyoma Status post left oophorectomy No indication for intervention at this time Endo: Sliding-scale insulin with Novulin R if indicated to maintain euglycemia/MBS less than 185 Renal: Acute kidney injury versus chronic kidney disease stage IIIA - unknown baseline BUN/Creatinine currently slightly elevated. Creatinine 1.1 - 1.2 last admission 01/02 with GFR around 50 Currently normal saline at 125 cc an hour. Monitor urine output. 30 cc an hour. Accurate I's and O's Heme: Acute blood loss anemia Hemoglobin 5.4 initial. Baseline 11 one week ago. Objective 5.2. Transfuse 2 units PRBCs. Recheck this AM. Coags within normal limits. ID: Monitor for infection FEN: Replace electrolytes as clinically indicated MSK: Spinal stenosis PT evaluate and treat Access - Utilize peripheral IV. Central line if indicated Prophylaxis - GI - pantoprazole drip - DVT - SCD/pharmacological prophylaxis contra indicated with acute hemorrhage Critical Care: Level III follow-up Ulises Gan MD Jan 11, 2017 10:17
--- NOTE | 2017-01-11 11:43 | HHI.GIFU ---
Subjective Remarks Pt resting in bed, at bedside. Had EGD yesterday. NO bleeding currently. (Susie León) Objective Vitals I&O Vital Signs Date Time Temp Pulse Resp B/P (MAP) Pulse Ox O2 Delivery O2 Flow Rate FiO2 01/11/17 10:01 98.4 86 18 128/65 99 01/11/17 08:11 100 Nasal Cannula 1.00 01/11/17 08:00 98.1 73 18 127/60 (82) 95 01/11/17 08:00 73 01/11/17 07:07 83 18 138/64 100 01/11/17 06:00 71 01/11/17 04:32 83 15 112/57 98 01/11/17 04:00 98.8 77 17 119/52 (74) 99 01/11/17 04:00 77 01/11/17 03:03 82 18 111/53 99 01/11/17 02:34 80 19 109/54 100 01/11/17 02:00 79 01/11/17 00:00 87 01/11/17 00:00 98.7 87 20 106/51 (69) 98 01/10/17 22:00 97 01/10/17 20:55 96 Nasal Cannula 1.00 01/10/17 20:49 18 01/10/17 20:00 99.2 113 25 115/56 (75) 95 01/10/17 20:00 113 01/10/17 18:35 16 01/10/17 18:00 96 01/10/17 16:00 99.5 76 20 122/56 (78) 99 01/10/17 16:00 76 01/10/17 15:00 72 01/10/17 14:30 97.7 73 17 151/67 (95) 100 01/10/17 14:15 72 16 142/64 (90) 98 01/10/17 14:00 77 16 114/51 (72) 98 01/10/17 13:48 97.8 84 15 142/63 (89) 100 I/O 01/10/17 01/10/17 01/10/17 01/11/17 01/11/17 01/11/17 07:00 15:00 23:00 07:00 15:00 23:00 Intake Total 650 ml 600 ml 1296 ml 1930 ml 545 ml Output Total 425 ml 0 ml Balance 225 ml 600 ml 1296 ml 1930 ml 545 ml Intake IV Total 150 ml 250 ml 1296 ml 1101 ml Packed Cells 500 ml 784 ml 500 ml Blood Product IV Normal Saline Flush 45 ml 45 ml Other 350 ml Output Urine Total 425 ml 0 ml Estimated Blood Loss 0 ml # Voids 1 4 2 # Bowel Movements 0 0 Laboratory Laboratory Tests Test 01/10/17 17:32 01/11/17 00:41 Hemoglobin 7.2 5.2 Hematocrit 21.4 16.4 Physical Exam HEENT: PERRL; normocephalic; atraumatic; no jaundice. CHEST: CTA CARDIAC: RRR ABDOMEN: Soft, nondistended, nontender; no hepatosplenomegaly; bowel sounds are present in all four quadrants. EXTREMITIES: No clubbing, cyanosis, or edema. SKIN: Normal; no rash; no jaundice. ARCHEOLOGIST: No focal deficits; alert and oriented times three. (Susie León [facility]) Assessment and Plan Plan ASSESSMENT: - GIB, hematemesis. Denies any hx of PUD. Has been taking meloxicam for her chronic back pain r/t spinal stenosis x 2 months. Intermittent epigastric pain with n/v x 3 weeks. Started Nexium Monday, was feeling better, but symptoms returned yesterday after eating chicken with noodles (no red sauce) and she vomited red blood x 3. S/ P EGD 01/10 found blood in esophagus, large ulcer duodenum and 2 clips applied. NPO. Protonix Gtt. - Abdominal pain with n/v x [address] Scan abdomen and pelvis without IV contrast (12/30/16)-----> diverticulosis without diverticulitis, s/p cholecystectomy, small fat-containing umbilical hernia, calcified leiomyoma. (+) NSAID use. - Severe Anemia, acute blood loss. Hgb 5.4 on admission, received blood and Hgb dropped to 5.2 after EGD yesterday, awaiting repeat HH. got 3 x PRBC - DARRYL. Mild. Likely related to acute blood loss/GIB. Brim Plater 1.03 on admission. trending down - HTN, Hyperlipidmia, depression, chronic back pain/spinal stenosis per attending. PLAN: - await repeat HH - if HH continues to drop or further active bleeding, IR consult for embolization - NPO - Protonix gtt - Monitor HH - Transfuse as necessary - Supportive care - Further recommendations to follow based on results of above - Pt seen and examined by Dr. Perez and myself and this note is written on his behalf (Susie León) Physician Comments S/P Endoclip of bleeding ulcer with visible vessel, will follow up with you. Further recommendations to follow. (Delmer Perez MD) Susie León Jan 11, 2017 11:43 Delmer Perez MD Jan 11, 2017 12:27
[2017-01-11] MEDS: ACETAMINOPHEN 325 MG TAB PO PRN (11:48)
[2017-01-11 15:46] LABS: AUTOMATED NEUTROPHIL # 12.6 TH/MM3 (1.8-7.7); BASOPHIL # 0.1 TH/MM3 (0-0.2); BASOPHIL % 0.4 % (0.0-2.0); EOSINOPHIL # 0.2 TH/MM3 (0-0.4); EOSINOPHIL % 1.1 % (0.0-4.0); HEMATOCRIT 28.5 % (35.0-46.0); HEMO FLAGS DIFF FINAL; LYMPH % 14.8 % (9.0-44.0); LYMPHOCYTE # 2.3 TH/MM3 (1.0-4.8); MEAN CELL VOLUME 87.3 FL (80.0-100.0); MONO % 3.9 % (0.0-8.0); NEUT % 79.8 % (16.0-70.0); PLATELET COUNT 228 TH/MM3 (150-450); RED BLOOD COUNT 3.27 MIL/MM3 (4.00-5.30); RED CELL DISTRIBUTION WIDTH 16.5 % (11.6-17.2); WHITE BLOOD COUNT 15.8 TH/MM3 (4.0-11.0)
[2017-01-11 15:58] LABS: ANION GAP 7 MEQ/L (5-15); AST (GOT) 17 U/L (15-37); BICARBONATE 24.7 MEQ/L (21.0-32.0); BLOOD UREA NITROGEN 28 MG/DL (7-18); CHLORIDE 114 MEQ/L (98-107); GLOMERULAR FILTRATION RATE 69 ML/MIN (>89); MAGNESIUM 2.2 MG/DL (1.5-2.5); POTASSIUM 3.7 MEQ/L (3.5-5.1); SODIUM (NA) 146 MEQ/L (136-145)
[2017-01-11 16:01] LABS: ALKALINE PHOSPHATASE 61 U/L (45-117); ALT (GPT) 14 U/L (10-53); TOTAL BILIRUBIN ADULT 0.9 MG/DL (0.2-1.0)
--- NOTE | 2017-01-11 20:06 | EKG ---
Date Performed: 01/10/2017 Time Performed: 11:49:39 PTAGE: 71 years EKG: Sinus rhythm NORMAL ECG NO PREVIOUS TRACING DOCTOR: Stacia Calhoun Interpretating Date/Time 01/11/2017 20:04:18
[2017-01-11] MEDS: ATORVASTATIN 40 MG TAB PO SCH (20:25)
[2017-01-12] VITALS (18 sets, daily range): BP systolic 131–154; BP diastolic 61–71; PULSE 70–85; RESP 16–26; TEMP 98.3–99; O2SAT 94–100
[2017-01-12] MEDS: CHLORHEXIDINE GLUCONATE 2 % 1 PACK (2 CLOTHS) TOP SCH (04:00)
[2017-01-12 04:51] LABS: AUTOMATED NEUTROPHIL # 8.4 TH/MM3 (1.8-7.7); BASOPHIL % 0.4 % (0.0-2.0); EOSINOPHIL # 0.3 TH/MM3 (0-0.4); EOSINOPHIL % 2.4 % (0.0-4.0); HEMATOCRIT 25.7 % (35.0-46.0); HEMO FLAGS DIFF FINAL; LYMPH % 16.7 % (9.0-44.0); LYMPHOCYTE # 1.9 TH/MM3 (1.0-4.8); MEAN CELL VOLUME 85.2 FL (80.0-100.0); MEAN CORPUSCULAR HEMOGLOBIN 29.2 PG (27.0-34.0); MEAN CORPUSCULAR HGB CONC 34.2 % (32.0-36.0); MONO % 4.8 % (0.0-8.0); NEUT % 75.7 % (16.0-70.0); PLATELET COUNT 206 TH/MM3 (150-450); RED BLOOD COUNT 3.02 MIL/MM3 (4.00-5.30); WHITE BLOOD COUNT 11.1 TH/MM3 (4.0-11.0)
[2017-01-12 04:59] LABS: PROTHROMBIN TIME - PATIENT 10.5 SEC (9.8-11.6)
[2017-01-12 05:19] LABS: ANION GAP 6 MEQ/L (5-15); AST (GOT) 16 U/L (15-37); BLOOD UREA NITROGEN 19 MG/DL (7-18); CHLORIDE 111 MEQ/L (98-107); GLOMERULAR FILTRATION RATE 73 ML/MIN (>89); POTASSIUM 3.3 MEQ/L (3.5-5.1); SODIUM (NA) 143 MEQ/L (136-145)
[2017-01-12 05:21] LABS: ALT (GPT) 17 U/L (10-53)
[2017-01-12 05:23] LABS: ALKALINE PHOSPHATASE 62 U/L (45-117); TOTAL BILIRUBIN ADULT 0.7 MG/DL (0.2-1.0)
[2017-01-12] MEDS: SODIUM CHLORIDE 0.9% FLUSH 10 ML FLUSH SCH ×2 (08:23→20:59)
[2017-01-12] MEDS: VENLAFAXINE HCL XR 75 MG CAP PO SCH (08:23)
[2017-01-12] MEDS: DOCUSATE SODIUM 50 MG/SENNA 8.6 MG TAB PO SCH ×2 (08:23→20:58)
[2017-01-12] MEDS: PANTOPRAZOLE INJ 80 MG in SODIUM CHLORIDE 0.9% INJ 100 ML IV SCH (10:30)
--- NOTE | 2017-01-12 10:34 | HHI.CCPN ---
Subjective Remarks/Hospital Course 71-year-old female who presents to the for dizziness, lightheadedness , nausea, vomiting, burning epigastric abdominal pain. The patient has similar symptoms 1 week ago was admitted to the hospital where she underwent laboratory evaluation and a CT of the abdomen and pelvis. The patient was noted to have diverticulosis without any evidence of diverticulitis and was subsequent discharged home. The patient followed up with her primary physician, Dr. Hill, who took the patient off of her ARB and placed her on Nexium. The patient states that approximate 4 PM earlier today she developed some epigastric burning pain associated with nausea and vomiting after eaten chicken Parmesan without Phillip sauce. Patient also complains of dark colored stools which appear black with a small amount of blood. The patient denies any known history of peptic ulcer disease and denies taking any anticoagulants or blood thinners. She denies any previous history of endoscopy. In the emergency department she was found to have positive orthostatic vital signs as well as her hemoglobin was found to be 5. She is admitted to critical care unit for gastric peptic ulcer disease with a gastroenterology consultation. 01/10: Afebrile. No further nausea/vomiting or bowel movements. Currently normal sinus rhythm. Denies chest pain, shortness of breath or abdominal pain. Appears comfortable. Status post 2 units PRBCs. 01/11: Afebrile. Hemoglobin dropped to 5.3 overnight. No bowel movement overnight. Complaining only of some vague abdominal discomfort. Transfused 3 additional units of PRBCs. A.m. laboratories pending. Noted large duodenal ulcer first part with visible vessel status post 2 Cook hemoclips. Hemodynamically stable. Subjective 01/12: Afebrile. Hemodynamically currently 8.8. No bowel movement yesterday. Complains of abdominal discomfort with cough. Currently sitting in chair in no acute distress. Objective Vital Signs Date Time Temp Pulse Resp B/P (MAP) Pulse Ox O2 Delivery O2 Flow Rate FiO2 01/12/17 09:29 95 21 01/12/17 08:00 84 01/12/17 08:00 99.0 16 154/67 (96) 01/11/17 08:11 Nasal Cannula 1.00 Intake and Output 01/12/17 01/12/17 01/12/17 07:59 15:59 23:59 Intake Total 2202 ml Balance 2202 ml Result Diagram: 01/12/1744001/12/17440 Objective Remarks GENERAL: 71-year-old female, resting in bed in no acute distress SKIN: Cool and dry. No rash. Appears well perfused. HEAD: Normocephalic. Atraumatic EYES: Pupils are 3 L bilaterally and reactive No scleral icterus. No injection or drainage. NECK: Supple, trachea midline. No JVD or lymphadenopathy. CARDIOVASCULAR: Regular rate and rhythm. S1, S2. No S4. Without murmur without murmurs, gallops, or rubs. RESPIRATORY: Essentially clear to auscultation bilaterally without wheezes rales or rhonchi. GASTROINTESTINAL: Abdomen soft, non-tender, nondistended. Umbilical hernia is soft and reducible. MUSCULOSKELETAL: No independent peripheral edema BACK: Nontender without obvious deformity. NEURO EXAM: Cranial nerves II through XII grossly intact. Strength is equal and symmetric bilaterally. Normal sensation to light touch and pinprick. A/P Assessment and Plan Neuro/Psych: Depression Cataracts Continue venlafaxine 75 mg by mouth daily for depression Acetaminophen 650 mg by mouth every 6 hours fever/pain 1 through 5 Morphine sulfate 2 mg IV every 2 hours when necessary pain 6-10 CV: Hypertension Dyslipidemia Currently on normal saline at 125 cc an hour Currently on atorvastatin 40 mg by mouth daily for dyslipidemia Holding losartan/chlorothiazide 50/12.5 mg daily for hypertension in light of acute bleeding. Resume when clinically indicated Resp: Nasal cannula to maintain saturations greater than equal to 92% Incentive spirometry while awake GI: Large duodenal ulcer with visible vessel status post 2 Cook hemoclips 01/10 Colonic diverticulosis Constipation Status post cholecystectomy Umbilical hernia Hypoalbuminemia Currently on pantoprazole drip. Received 80 mg bolus in ED. Currently at 8 mg an hour. GI consultation for endoscopy - 01/10 with first burn esophagus coming stomach. Gastric erosions status post multiple masses. Large duodenal ulcer with visible vessel status post Cook Hemoclip Patient is on esomeprazole 20 mg daily for GERD Patient is on Citrucel for constipation See heme : [place] catheter if indicated for accurate I's and O's in a critically ill patient SCHOOL ADMISSIONS REPRESENTATIVE: Right calcified leomyoma Status post left oophorectomy No indication for intervention at this time Endo: Sliding-scale insulin with Novulin R if indicated to maintain euglycemia/MBS less than 185 Renal: Acute kidney injury versus chronic kidney disease stage IIIA - unknown baseline BUN/Creatinine currently slightly elevated. Creatinine 1.1 - 1.2 last admission 01/02 with GFR around 50 Discontinue IV fluids Monitor urine output. 30 cc an hour. Accurate I's and O's Heme: Acute blood loss anemia Hemoglobin 5.4 initial. Baseline 11 one week ago. Currently 8.8. Transfuse 5 units PRBCs. Since admission. Recheck this afternoon. Coags within normal limits. ID: Monitor for infection FEN: Replace electrolytes as clinically indicated MSK: Spinal stenosis PT evaluate and treat Access - Utilize peripheral IV. Central line if indicated Prophylaxis - GI - pantoprazole drip - DVT - SCD/pharmacological prophylaxis contra indicated with acute hemorrhage Critical Care: Level 2 followup. Patient is stable from a critical care medicine standpoint. We'll assign care to hospitalist in a.m. 01/13.. Ulises Gan MD Jan 12, 2017 10:34
[2017-01-12] MEDS ORDERED: NITROGLYCERIN 2% OINT 1 GM PACKET TOPICAL PRN (12:00)
[2017-01-12] MEDS ORDERED: hydrALAZINE HCL 20 MG/ML VIAL IV PUSH PRN (12:00)
--- NOTE | 2017-01-12 15:21 | HHI.GIFU ---
Subjective Remarks Resting in bed in no distress. No active bleeding. States she feels much better-mild epigastric discomfort.. Tolerating liquid diet. (Janett Guerrero) Objective Vitals I&O Vital Signs Date Time Temp Pulse Resp B/P (MAP) Pulse Ox O2 Delivery O2 Flow Rate FiO2 01/12/17 14:00 72 01/12/17 12:00 70 01/12/17 12:00 98.7 70 18 135/61 (85) 98 01/12/17 10:00 72 01/12/17 09:29 95 21 01/12/17 08:00 84 01/12/17 08:00 99.0 85 16 154/67 (96) 100 01/12/17 06:00 76 01/12/17 04:00 73 01/12/17 04:00 98.7 73 21 142/61 (88) 95 01/12/17 02:00 75 01/12/17 00:00 74 01/12/17 00:00 98.4 74 23 131/62 (85) 97 01/11/17 22:00 72 01/11/17 21:16 95 21 01/11/17 20:00 75 01/11/17 20:00 98.9 75 22 129/61 (83) 97 01/11/17 18:00 74 01/11/17 16:00 98.5 74 18 127/59 (81) 95 01/11/17 16:00 74 I/O 01/11/17 01/11/17 01/11/17 01/12/17 01/12/17 01/12/17 06:59 14:59 22:59 06:59 14:59 22:59 Intake Total 1930 ml 545 ml 1869 ml 2202 ml 66 ml Balance 1930 ml 545 ml 1869 ml 2202 ml 66 ml Intake Oral 480 ml 600 ml IV Total 1101 ml 1389 ml 1602 ml 66 ml Packed Cells 784 ml 500 ml Blood Product IV Normal Saline Flush 45 ml 45 ml # Voids 2 4 # Bowel Movements 0 1 0 Laboratory Laboratory Tests Test 01/11/17 21:29 01/12/17 04:41 Hemoglobin 9.2 8.8 White Blood Count 11.1 Red Blood Count 3.02 Hematocrit 25.7 Mean Corpuscular Volume 85.2 Mean Corpuscular Hemoglobin 29.2 Mean Corpuscular Hemoglobin Concent 34.2 Red Cell Distribution Width 16.0 Platelet Count 206 Mean Platelet Volume 8.3 Neutrophils (%) (Auto) 75.7 Lymphocytes (%) (Auto) 16.7 Monocytes (%) (Auto) 4.8 Eosinophils (%) (Auto) 2.4 Basophils (%) (Auto) 0.4 Neutrophils # (Auto) 8.4 Lymphocytes # (Auto) 1.9 Monocytes # (Auto) 0.5 Eosinophils # (Auto) 0.3 Basophils # (Auto) 0.0 CBC Comment DIFF FINAL Differential Comment Prothrombin Time 10.5 Prothromb Time International Ratio 1.0 Activated Partial Thromboplast Time 26.0 Fibrinogen 450 Blood Urea Nitrogen 19 Creatinine 0.78 Random Glucose 97 Total Protein 5.0 Albumin 2.5 Calcium Level 7.8 Phosphorus Level 2.3 Magnesium Level 2.0 Alkaline Phosphatase 62 Aspartate Amino Transf (AST/SGOT) 16 Alanine Aminotransferase (ALT/SGPT) 17 Total Bilirubin 0.7 Sodium Level 143 Potassium Level 3.3 Chloride Level 111 Carbon Dioxide Level 26.0 Anion Gap 6 Estimat Glomerular Filtration Rate 73 Lactic Acid Level 0.7 Physical Exam HEENT: Normocephalic; atraumatic; no jaundice. CHEST: CTA CARDIAC: RRR ABDOMEN: Soft, nondistended, nontender; no hepatosplenomegaly; bowel sounds are present in all four quadrants. EXTREMITIES: No clubbing, cyanosis, or edema. SKIN: Normal; no rash; no jaundice. 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 (Janett Guerrero [facility]) Assessment and Plan Plan ASSESSMENT: - GIB, hematemesis. S/P EGD (01/10/17)----> blood in the entire esophagus, fresh blood in the entire stomach, there was mild gastritis in the gastric body multiple biopsies were performed, large ulcer was found in the first part of the duodenum; complete hemostasis was achieved by placing 2 hemoclips on the bleeding sites , normal duodenal mucosa in the second portion of the duodenum, retroflex views revealed a hiatal hernia. Pathology revealed antral mucosa with markedly active chronic gastritis. A Center stain was positive for rare organisms suggestive of helicobacter. No active bleeding. HH stable. - H. pylori gastritis. DC Protonix drip. Amoxicillin/clarithromycin x 10 days , Protonix with twice a day dosing 1month. - Large duodenal ulcer. Protonix with twice a day dosing 1 month - Abdominal pain with n/v x [address] Scan abdomen and pelvis without IV contrast (12/30/16)-----> diverticulosis without diverticulitis, s/p cholecystectomy, small fat-containing umbilical hernia, calcified leiomyoma. (+) NSAID use. IMproved. - Severe Anemia, acute blood loss. S/P 5 units of packed red blood cells. H& H is now stable at 8.8/25.7. She is not having any active bleeding - DARRYL. Mild. Improved - HTN, Hyperlipidmia, depression, chronic back pain/spinal stenosis per attending. PLAN: - Full liquid diet today and start heart healthy soft diet in a.m. - DC Protonix drip - Protonix 40 mg by mouth twice a day x 30 days - Amoxicillin 1 g by mouth twice a day 10 days - Clarithromycin 500 mg by mouth twice daily 10 days - Monitor HH - Transfuse as necessary - Supportive care - Repeat EGD in 4-6 weeks - Further recommendations to follow based on results of above - Pt seen and examined by Dr. Perez and myself and this note is written on his behalf (Janett Guerrero) Physician Comments Seen and examined, plan as above. Will follow up with you. (Delmer Perez MD) Janett Guerrero Jan 12, 2017 15:21 Delmer Perez MD Jan 13, 2017 06:20
[2017-01-12 18:14] LABS: HEMATOCRIT 27.9 % (35.0-46.0); REVIEW FLAG FINAL
[2017-01-12] MEDS: CLARITHROMYCIN 500 MG TAB PO SCH (20:58)
[2017-01-12] MEDS: ATORVASTATIN 40 MG TAB PO SCH (20:58)
[2017-01-12] MEDS: PANTOPRAZOLE SOD 40 MG DELAYED RELEASE TAB PO SCH (20:58)
[2017-01-12] MEDS: AMOXICILLIN (TRIHYDRATE) 500 MG CAP PO SCH (20:59)
[2017-01-12] MEDS: ONDANSETRON HCL 4 MG/2 ML VIAL IV PRN (23:45)
[2017-01-13] VITALS (14 sets, daily range): BP systolic 120–164; BP diastolic 58–87; PULSE 66–85; RESP 12–31; TEMP 98.2–98.6; O2SAT 92–98
[2017-01-13] MEDS: CHLORHEXIDINE GLUCONATE 2 % 1 PACK (2 CLOTHS) TOP SCH (02:02)
[2017-01-13 07:01] LABS: AUTOMATED NEUTROPHIL # 5.3 TH/MM3 (1.8-7.7); BASOPHIL % 0.5 % (0.0-2.0); EOSINOPHIL # 0.3 TH/MM3 (0-0.4); EOSINOPHIL % 3.5 % (0.0-4.0); HEMATOCRIT 29.8 % (35.0-46.0); HEMO FLAGS DIFF FINAL; LYMPH % 23.3 % (9.0-44.0); LYMPHOCYTE # 1.8 TH/MM3 (1.0-4.8); MEAN CELL VOLUME 87.1 FL (80.0-100.0); MEAN CORPUSCULAR HEMOGLOBIN 29.5 PG (27.0-34.0); MEAN CORPUSCULAR HGB CONC 33.9 % (32.0-36.0); MONO % 5.7 % (0.0-8.0); PLATELET COUNT 218 TH/MM3 (150-450); RED BLOOD COUNT 3.42 MIL/MM3 (4.00-5.30); RED CELL DISTRIBUTION WIDTH 16.2 % (11.6-17.2); WHITE BLOOD COUNT 7.9 TH/MM3 (4.0-11.0)
[2017-01-13 07:02] LABS: ALT (GPT) 17 U/L (10-53); ANION GAP 8 MEQ/L (5-15); AST (GOT) 16 U/L (15-37); BICARBONATE 25.8 MEQ/L (21.0-32.0); BLOOD UREA NITROGEN 11 MG/DL (7-18); CHLORIDE 111 MEQ/L (98-107); GLOMERULAR FILTRATION RATE 80 ML/MIN (>89); MAGNESIUM 2.1 MG/DL (1.5-2.5); POTASSIUM 3.3 MEQ/L (3.5-5.1); SODIUM (NA) 145 MEQ/L (136-145)
[2017-01-13 07:04] LABS: ALKALINE PHOSPHATASE 71 U/L (45-117); TOTAL BILIRUBIN ADULT 0.7 MG/DL (0.2-1.0)
[2017-01-13] MEDS ORDERED: POTASSIUM CHLORIDE 10 MEQ CONTROLLED RELEASE TAB PO ONE (08:15)
[2017-01-13] MEDS: DOCUSATE SODIUM 50 MG/SENNA 8.6 MG TAB PO SCH (08:31)
[2017-01-13] MEDS: PANTOPRAZOLE SOD 40 MG DELAYED RELEASE TAB PO SCH (08:31)
[2017-01-13] MEDS: SODIUM CHLORIDE 0.9% FLUSH 10 ML FLUSH SCH (08:31)
[2017-01-13] MEDS: AMOXICILLIN (TRIHYDRATE) 500 MG CAP PO SCH (08:31)
[2017-01-13] MEDS: CLARITHROMYCIN 500 MG TAB PO SCH (08:32)
[2017-01-13] MEDS: VENLAFAXINE HCL XR 75 MG CAP PO SCH (08:32)
--- NOTE | 2017-01-13 12:32 | HHI.PR ---
Subjective Remarks no further episodes of hematemesis no melena or hematochezia, no nausea or vomiting feels watery eyes, coughing- dry, sneezing Objective Vitals Vital Signs Date Time Temp Pulse Resp B/P (MAP) Pulse Ox O2 Delivery O2 Flow Rate FiO2 01/13/17 08:37 98 21 01/13/17 08:00 98.3 79 20 164/73 (103) 92 01/13/17 08:00 79 01/13/17 06:00 69 15 138/67 (90) 98 01/13/17 06:00 69 01/13/17 05:01 66 17 120/58 (78) 92 01/13/17 05:00 67 17 92 01/13/17 04:00 98.4 73 16 155/68 (97) 98 01/13/17 04:00 73 01/13/17 04:00 73 18 155/68 (97) 95 01/13/17 03:00 77 22 155/69 (97) 96 01/13/17 02:00 69 01/13/17 02:00 69 19 151/69 (96) 97 01/13/17 01:01 85 31 142/87 (105) 98 01/13/17 01:00 77 22 95 01/13/17 00:00 98.2 69 18 144/64 (90) 95 01/13/17 00:00 69 01/13/17 00:00 69 20 144/64 (90) 95 01/13/17 00:00 69 20 144/64 (90) 95 01/12/17 23:00 78 22 139/65 (89) 94 01/12/17 22:38 79 22 138/63 (88) 96 01/12/17 22:00 76 01/12/17 22:00 76 20 97 01/12/17 21:00 75 26 98 01/12/17 20:11 97 01/12/17 20:00 83 24 141/71 (94) 99 01/12/17 20:00 83 01/12/17 20:00 98.3 83 18 141/71 (94) 99 01/12/17 19:00 80 21 97 01/12/17 18:00 77 01/12/17 16:00 78 01/12/17 16:00 98.5 78 21 141/71 (94) 95 01/12/17 14:00 72 I/O 01/12/17 01/12/17 01/12/17 01/13/17 01/13/17 01/13/17 06:59 14:59 22:59 06:59 14:59 22:59 Intake Total 2202 ml 66 ml 560 ml Output Total 2025 ml Balance 2202 ml 66 ml -1465 ml Intake Oral 600 ml 560 ml IV Total 1602 ml 66 ml 0 ml Output Urine Total 2025 ml # Voids 4 4 # Bowel Movements 0 1 1 Result Diagram: 01/13/1759 01/13/17558 Objective Remarks awake and alert, NAD anicteric no throat erythema lungs- no rales or hweezes, no rhonchi regular rhythm abdomen soft, nontender extremities no edema neuro exam- unremarkable Procedures 01/11- EGD- gastritis A/P Assessment and Plan 71 years old female UGI secondary to Large duodenal ulcer with visible vessel status post 2 Cook hemoclips 01/10 Colonic diverticulosis Constipation Status post cholecystectomy Umbilical hernia - PPI -H and H stable Acute blood loss anemia secondary to GIB H and H improved and stable Hemoglobin 5.4 initial. Baseline 11 one week ago. Transfused total 5 units PRBCs. on PPI bid H pylori + on biopsy -per patient taking Mobic on a regular basis at home -discuss with her no NSAIDs - on PPI bid - H pylori treatment with Biaxin and Trimox till 02/18 HYpokalemia -per patient on KCL maintenance supplements at home start on po KCL 30 meq po daily Depression Continue venlafaxine 75 mg by mouth daily for depression Acetaminophen 650 mg by mouth every 6 hours fever/pain 1 through 5 Morphine sulfate 2 mg IV every 2 hours when necessary pain 6-10 Hypertension Dyslipidemia now off meds. initially low bps. continue to monitor and reintroduce gradually Currently on atorvastatin 40 mg by mouth daily for dyslipidemia Holding losartan/chlorothiazide 50/12.5 mg daily for hypertension in light of acute bleeding. Resume when clinically indicated restart tomorrow Right calcified leomyoma Status post left oophorectomy No indication for intervention at this time Endo: Sliding-scale insulin with Novulin R if indicated to maintain euglycemia/MBS less than 185 Renal: Acute kidney injury versus chronic kidney disease stage IIIA - unknown baseline - improved BUN/Creatinine currently slightly elevated. Creatinine 1.1 - 1.2 last admission 01/02 with GFR around 50 Discontinue IV fluids Monitor urine output. 30 cc an hour. Accurate I's and O's Spinal stenosis - d/w her no NSAIds PT evaluate and treat Elias Salas MD Jan 13, 2017 12:32
--- NOTE | 2017-01-13 15:26 | HHI.GIFU ---
Subjective Remarks Resting in bed. No n/v. No active bleeding. Tolerating diet. Waiting on bed on medical floor to be transferred. Does have a dry cough today. (Janett Guerrero) Objective Vitals I&O Vital Signs Date Time Temp Pulse Resp B/P (MAP) Pulse Ox O2 Delivery O2 Flow Rate FiO2 01/13/17 14:00 79 01/13/17 12:00 98.6 71 12 129/60 (83) 98 01/13/17 12:00 71 01/13/17 10:00 71 01/13/17 08:37 98 21 01/13/17 08:00 98.3 79 20 164/73 (103) 92 01/13/17 08:00 79 01/13/17 06:00 69 15 138/67 (90) 98 01/13/17 06:00 69 01/13/17 05:01 66 17 120/58 (78) 92 01/13/17 05:00 67 17 92 01/13/17 04:00 98.4 73 16 155/68 (97) 98 01/13/17 04:00 73 01/13/17 04:00 73 18 155/68 (97) 95 01/13/17 03:00 77 22 155/69 (97) 96 01/13/17 02:00 69 01/13/17 02:00 69 19 151/69 (96) 97 01/13/17 01:01 85 31 142/87 (105) 98 01/13/17 01:00 77 22 95 01/13/17 00:00 98.2 69 18 144/64 (90) 95 01/13/17 00:00 69 01/13/17 00:00 69 20 144/64 (90) 95 01/13/17 00:00 69 20 144/64 (90) 95 01/12/17 23:00 78 22 139/65 (89) 94 01/12/17 22:38 79 22 138/63 (88) 96 01/12/17 22:00 76 01/12/17 22:00 76 20 97 01/12/17 21:00 75 26 98 01/12/17 20:11 97 01/12/17 20:00 83 24 141/71 (94) 99 01/12/17 20:00 83 8/24/17 20:00 98.3 83 18 141/71 (94) 99 01/12/17 19:00 80 21 97 01/12/17 18:00 77 01/12/17 16:00 78 01/12/17 16:00 98.5 78 21 141/71 (94) 95 I/O 01/12/17 01/12/17 01/12/17 01/13/17 01/13/17 01/13/17 07:00 15:00 23:00 07:00 15:00 23:00 Intake Total 2202 ml 66 ml 560 ml Output Total 2025 ml Balance 2202 ml 66 ml -1465 ml Intake Oral 600 ml 560 ml IV Total 1602 ml 66 ml 0 ml Output Urine Total 2025 ml # Voids 4 4 # Bowel Movements 0 1 1 Laboratory Laboratory Tests Test 01/12/17 18:06 01/13/17 05:59 Hemoglobin 9.5 10.1 Hematocrit 27.9 29.8 White Blood Count 7.9 Red Blood Count 3.42 Mean Corpuscular Volume 87.1 Mean Corpuscular Hemoglobin 29.5 Mean Corpuscular Hemoglobin Concent 33.9 Red Cell Distribution Width 16.2 Platelet Count 218 Mean Platelet Volume 8.6 Neutrophils (%) (Auto) 67.0 Lymphocytes (%) (Auto) 23.3 Monocytes (%) (Auto) 5.7 Eosinophils (%) (Auto) 3.5 Basophils (%) (Auto) 0.5 Neutrophils # (Auto) 5.3 Lymphocytes # (Auto) 1.8 Monocytes # (Auto) 0.5 Eosinophils # (Auto) 0.3 Basophils # (Auto) 0.0 CBC Comment DIFF FINAL Differential Comment Blood Urea Nitrogen 11 Creatinine 0.72 Random Glucose 95 Total Protein 5.5 Albumin 2.5 Calcium Level 8.1 Phosphorus Level 3.3 Magnesium Level 2.1 Alkaline Phosphatase 71 Aspartate Amino Transf (AST/SGOT) 16 Alanine Aminotransferase (ALT/SGPT) 17 Total Bilirubin 0.7 Sodium Level 145 Potassium Level 3.3 Chloride Level 111 Carbon Dioxide Level 25.8 Anion Gap 8 Estimat Glomerular Filtration Rate 80 Physical Exam HEENT: Normocephalic; atraumatic; no jaundice. CHEST: CTA CARDIAC: RRR ABDOMEN: Soft, nondistended, nontender; no hepatosplenomegaly; bowel sounds are present in all four quadrants. EXTREMITIES: No clubbing, cyanosis, or edema. SKIN: Red spotted rash to back. [employer]: No focal deficits; alert and oriented times three. (Janett Guerrero) Assessment and Plan Plan ASSESSMENT: - GIB, hematemesis. S/P EGD (01/10/17)----> blood in the entire esophagus, fresh blood in the entire stomach, there was mild gastritis in the gastric body multiple biopsies were performed, large ulcer was found in the first part of the duodenum; complete hemostasis was achieved by placing 2 hemoclips on the bleeding sites , normal duodenal mucosa in the second portion of the duodenum, retroflex views revealed a hiatal hernia. Pathology revealed antral mucosa with markedly active chronic gastritis. A Center stain was positive for rare organisms suggestive of helicobacter. PPI/Amoxicillin/Clarithromycin. No active bleeding. HH stable. Tolerating diet - H. pylori gastritis. DC Protonix drip. Amoxicillin/clarithromycin x 10 days , Protonix with twice a day dosing 1month. - Large duodenal ulcer. Protonix with twice a day dosing 1 month - Abdominal pain with n/v x [address] Scan abdomen and pelvis without IV contrast (12/30/16)-----> diverticulosis without diverticulitis, s/p cholecystectomy, small fat-containing umbilical hernia, calcified leiomyoma. (+) NSAID use. Improved. - Severe Anemia, acute blood loss. S/P 5 units of packed red blood cells. H& H is now stable at 10.1/29.8. She is not having any active bleeding - DARRYL. Mild. Improved - HTN, Hyperlipidmia, depression, chronic back pain/spinal stenosis per attending. PLAN: - Heart healthy diet - Protonix 40 mg by mouth twice a day x 30 days - Amoxicillin 1 g by mouth twice a day 10 days - Clarithromycin 500 mg by mouth twice daily 10 days - Okay to d/c home in am from GI standpoint - No NSAIDs - Repeat EGD in 4-6 weeks - Further recommendations to follow based on results of above - Pt seen and examined by Dr. Perez and myself and this note is written on his behalf (Janett Guerrero) Physician Comments Seen and examined, plan as above, advance diet as tolerated. Stable from GI point of view. (Delmer Perez MD) Janett Guerrero Jan 13, 2017 15:26 Delmer Perez MD Jan 13, 2017 15:59
[2017-01-13] MEDS ORDERED: AMOX500C PO (16:03)
[2017-01-13] MEDS ORDERED: PANT40TA3 PO (16:03)
[2017-01-13] MEDS ORDERED: CLAR500T PO (16:03)
--- NOTE | 2017-01-13 16:08 | HHI.DS ---
Discharge Summary Admission Date Jan 09, 2017 at 23:16 Discharge Date: Jan 13, 2017 Admitting Diagnosis symptomatic anemia, upper GI bleed, rule out bleeding peptic ulcer (1) GIB (gastrointestinal bleeding) ICD Code: K92.2 - Gastrointestinal hemorrhage, unspecified (2) Duodenal ulcer ICD Code: K26.9 - Duodenal ulcer, unspecified as acute or chronic, without hemorrhage or perforation Procedures 01/11- EGD- gastritis Brief History - From Admission 71-year-old female who presents to the for dizziness, lightheadedness , nausea, vomiting, burning epigastric abdominal pain. The patient has similar symptoms 1 week ago was admitted to the hospital where she underwent laboratory evaluation and a CT of the abdomen and pelvis. The patient was noted to have diverticulosis without any evidence of diverticulitis and was subsequent discharged home. The patient followed up with her primary physician, Dr. Hill, who took the patient off of her ARB and placed her on Nexium. The patient states that approximate 4 PM earlier today she developed some epigastric burning pain associated with nausea and vomiting after eaten chicken Parmesan without Phillip sauce. Patient also complains of dark colored stools which appear black with a small amount of blood. The patient denies any known history of peptic ulcer disease and denies taking any anticoagulants or blood thinners. She denies any previous history of endoscopy. In the emergency department she was found to have positive orthostatic vital signs as well as her hemoglobin was found to be 5. She is admitted to critical care unit for gastric peptic ulcer disease with a gastroenterology consultation. CBC/BMP: 01/13/17 0559 01/13/17 0559 Significant Findings Laboratory Tests Test 01/10/17 17:32 01/11/17 00:41 01/11/17 14:21 01/11/17 21:29 Hemoglobin 7.2 GM/DL (11.6-15.3) 5.2 GM/DL (11.6-15.3) 9.1 GM/DL (11.6-15.3) 9.2 GM/DL (11.6-15.3) Hematocrit 21.4 % (35.0-46.0) 16.4 % (35.0-46.0) 28.5 % (35.0-46.0) White Blood Count 15.8 TH/MM3 (4.0-11.0) Red Blood Count 3.27 MIL/MM3 (4.00-5.30) Neutrophils (%) (Auto) 79.8 % (16.0-70.0) Neutrophils # (Auto) 12.6 TH/MM3 (1.8-7.7) Blood Urea Nitrogen 28 MG/DL (7-18) Total Protein 5.0 GM/DL (6.4-8.2) Albumin 2.5 GM/DL (3.4-5.0) Calcium Level 8.0 MG/DL (8.5-10.1) Phosphorus Level 2.3 MG/DL (2.5-4.9) Sodium Level 146 MEQ/L (136-145) Chloride Level 114 MEQ/L (98-107) Estimat Glomerular Filtration Rate 69 ML/MIN (>89) Test 01/12/17 04:41 01/12/17 18:06 01/13/17 05:59 White Blood Count 11.1 TH/MM3 (4.0-11.0) Red Blood Count 3.02 MIL/MM3 (4.00-5.30) 3.42 MIL/MM3 (4.00-5.30) Hemoglobin 8.8 GM/DL (11.6-15.3) 9.5 GM/DL (11.6-15.3) 10.1 GM/DL (11.6-15.3) Hematocrit 25.7 % (35.0-46.0) 27.9 % (35.0-46.0) 29.8 % (35.0-46.0) Neutrophils (%) (Auto) 75.7 % (16.0-70.0) Neutrophils # (Auto) 8.4 TH/MM3 (1.8-7.7) Fibrinogen 450 mg/dL (227-377) Blood Urea Nitrogen 19 MG/DL (7-18) Total Protein 5.0 GM/DL (6.4-8.2) 5.5 GM/DL (6.4-8.2) Albumin 2.5 GM/DL (3.4-5.0) 2.5 GM/DL (3.4-5.0) Calcium Level 7.8 MG/DL (8.5-10.1) 8.1 MG/DL (8.5-10.1) Phosphorus Level 2.3 MG/DL (2.5-4.9) Potassium Level 3.3 MEQ/L (3.5-5.1) 3.3 MEQ/L (3.5-5.1) Chloride Level 111 MEQ/L (98-107) 111 MEQ/L (98-107) Estimat Glomerular Filtration Rate 73 ML/MIN (>89) 80 ML/MIN (>89) PE at Discharge awake and alert, NAD anicteric no throat erythema lungs- no rales or wheezes, no rhonchi regular rhythm abdomen soft, nontender extremities no edema neuro exam- unremarkable Pt update on day of discharge awake and alert, tolerating po well, no pain VS stable d/w her and - no NSAIDs Hospital Course 71 years old female UGIB secondary to Large duodenal ulcer with visible vessel status post 2 Cook hemoclips 01/10 Colonic diverticulosis Constipation Status post cholecystectomy Umbilical hernia - PPI -H and H stable Acute blood loss anemia secondary to GIB H and H improved and stable Hemoglobin 5.4 initial. Baseline 11 one week ago. Transfused total 5 units PRBCs. on PPI bid H pylori + on biopsy -per patient taking Mobic on a regular basis at home -discuss with her no NSAIDs - on PPI bid - H pylori treatment with Biaxin and Trimox x 10 days HYpokalemia -per patient on KCL maintenance supplements at home start on po KCL 30 meq po daily Depression Continue venlafaxine 75 mg by mouth daily for depression Acetaminophen 650 mg by mouth every 6 hours fever/pain 1 through 5 Morphine sulfate 2 mg IV every 2 hours when necessary pain 6-10 Hypertension Dyslipidemia now off meds. initially low bps. continue to monitor and reintroduce gradually Currently on atorvastatin 40 mg by mouth daily for dyslipidemia Holding losartan/chlorothiazide 50/12.5 mg daily for hypertension in light of acute bleeding. Resume when clinically indicated restart tomorrow Right calcified leomyoma Status post left oophorectomy No indication for intervention at this time Endo: Sliding-scale insulin with Novulin R if indicated to maintain euglycemia/MBS less than 185 Renal: Acute kidney injury versus chronic kidney disease stage IIIA - unknown baseline - improved BUN/Creatinine currently slightly elevated. Creatinine 1.1 - 1.2 last admission 01/02 with GFR around 50 Discontinue IV fluids Monitor urine output. 30 cc an hour. Accurate I's and O's Spinal stenosis - d/w her no NSAIds Pt Condition on Discharge: Stable Discharge Disposition: Discharge Home Discharge Time: <= 30 minutes Discharge Instructions DIET: Follow Instructions for: As Tolerated, No Restrictions, Heart Healthy Diet Speech Therapy-Diet Recommends: Regular Activities you can perform: Weight Bearing as Prakash Activities to Avoid: Strenuous Activity Follow up Referrals: Gastroenterology - 4 Weeks with Delmer Perez MD PCP Follow-up - 3-5 Days with Ashlyn New Orders: BASIC METABOLIC PROF - 01/17/17 New Medications: Amoxicillin (Amoxicillin) 500 Mg Cap 1000 MG PO BID for HYPLYori for 10 Days, #20 CAP 0 Refills Clarithromycin (Clarithromycin) 500 Mg Tab 500 MG PO Q12HR for hpylor for 10 Days, #20 TAB 0 Refills Pantoprazole (Pantoprazole) 40 Mg Tab 40 MG PO Q12HR for GI, #60 TAB 1 Refill Continued Medications: Atorvastatin (Lipitor) 40 Mg Tab 40 MG PO HS for Cholesterol Management, #30 TAB 0 Refills Losartan-Hydrochlorothiazide (Hyzaar) 50-12.5 Mg Tab 1 TAB PO DAILY for Blood Pressure Management, #30 TAB 0 Refills Venlafaxine ER 24 HR (Venlafaxine ER 24 HR) 75 Mg Tab 75 MG PO DAILY, #30 TAB 0 Refills Elias Salas MD Jan 13, 2017 16:08
== END 2017-01-13 17:00 | disposition home or self-care (01) | DRG 378 ==
LOC: NEPE 21:35 → NEDA 23:16 → HIMN 01-10 02:50
PROVIDERS: ADMIT Internal Medicine; ATTEND Internal Medicine
PROC: 0DB68ZX Excision of Stomach, Via Natural or Artificial Opening Endoscopic, Diagnostic (ICD-10-PCS; 2017-01-10)
PROC: 30233N1 Transfusion of Nonautologous Red Blood Cells into Peripheral Vein, Percutaneous Approach (ICD-10-PCS; 2017-01-10)
PROC: 0W3P8ZZ Control Bleeding in Gastrointestinal Tract, Via Natural or Artificial Opening Endoscopic (ICD-10-PCS; principal; 2017-01-10 12:51)
DX: K26.4 Chronic or unspecified duodenal ulcer with hemorrhage (principal); D62 Acute posthemorrhagic anemia; N17.9 Acute kidney failure, unspecified; I10 Essential (primary) hypertension; K44.9 Diaphragmatic hernia without obstruction or gangrene; K57.30 Diverticulosis of large intestine without perforation or abscess without bleeding; E78.5 Hyperlipidemia, unspecified; M51.36 Other intervertebral disc degeneration, lumbar region; K59.00 Constipation, unspecified; B96.81 Helicobacter pylori [H. pylori] as the cause of diseases classified elsewhere; E87.6 Hypokalemia; F32.9 Major depressive disorder, single episode, unspecified; E88.09 Other disorders of plasma-protein metabolism, not elsewhere classified; K21.9 Gastro-esophageal reflux disease without esophagitis; K29.50 Unspecified chronic gastritis without bleeding; K42.9 Umbilical hernia without obstruction or gangrene
CPT/HCPCS: 36430; 80053; 82948; 83605; 83690; 83735; 84100; 85007; 85014; 85018; 85025; 85027; 85384; 85610; 85730; 86850; 86900; 86901; 86920; 87641; 88305; 88312; 93005; 96361; 96374; 96375; C9113; J2270; J2405; J7030; J7050; P9016